=== PATIENT | female | born 1970 | race Caucasian/White ===

== ENCOUNTER 2017-11-16 00:42 | Outpatient (CLI) | payer BC, SELFPAY ==
--- NOTE | 2017-11-16 14:16 | DI.MAMMO_ITS ---
SYMPTOM/DIAGNOSIS: DIAGNOSTIC, RT NIPPLE DISCHARGE, N64.52 MAMMOGRAMS: Mammograms were interpreted according to the usual protocol including computer analysis with CAD system, tomosynthesis and C view imaging. Comparison is made with prior examinations. Breast density, category B. No suspicious masses or microcalcifications are seen. The skin and axilla are unremarkable. There has been no significant change compared to the prior examination. A right breast ultrasound was recommended. The patient was unable to have the ultrasound today and is scheduled to return 11/17/17. IMPRESSION: Category 0, ultrasound pending. The findings were discussed with the patient on the date of the examination. MQSA ASSESSMENT OF FINDINGS: Incomplete: Needs additional imaging evaluation. Category 0. Patient will receive a letter notifying them of these results. BI-RADS category B. There are scattered areas of fibroglandular density. Patient returned on 11/17/17 for right breast ultrasound. FINAL MQSA ASSESSMENT OF FINDINGS: Negative. Category 1. Patient will receive a letter notifying them of these results.
== END 2017-11-16 01:02 ==
PROVIDERS: PCP Family Medicine; Visit Provider Family Medicine
DX: N64.52 Nipple discharge (principal); R92.8 Other abnormal and inconclusive findings on diagnostic imaging of breast
CPT/HCPCS: 77062; 77066; G0279

== ENCOUNTER 2017-11-16 14:23 | Outpatient (CLI) | payer BC, SELFPAY ==
[2017-11-16 16:58] LABS: TSH (W/Ref FT4) 1.34 uIU/mL (0.358-3.74)
[2017-11-16 18:10] LABS: Hemoglobin A1C 6.2 % (4.5-6.2)
== END 2017-11-16 14:43 ==
PROVIDERS: PCP Family Medicine; Visit Provider Family Medicine
DX: E11.65 Type 2 diabetes mellitus with hyperglycemia (principal); N64.52 Nipple discharge
CPT/HCPCS: 36415; 83036; 84443

== ENCOUNTER 2017-11-17 15:02 | Outpatient (CLI) | payer BC, SELFPAY ==
--- NOTE | 2017-11-17 15:23 | DI.US_ITS ---
SYMPTOM/DIAGNOSIS: F/U ABNL MAMMO 11/16 RIGHT BREAST ULTRASOUND: Comparison is made with the mammogram and additional views from 11/16/17. The patient is returning for the right breast ultrasound. The retro areolar region of the right breast was evaluated sonographically. No cystic or solid masses are seen. No ductal dilatation is seen in the retroareolar region. IMPRESSION: Negative mammogram and ultrasound. Yearly mammography is recommended. Category 1 B Negative mammogram and ultrasound should not preclude biopsy of a clinically suspicious mass. The findings were discussed with the patient on the date of the examination.
== END 2017-11-17 15:22 ==
PROVIDERS: PCP Family Medicine; Visit Provider Family Medicine
DX: Z12.31 Encounter for screening mammogram for malignant neoplasm of breast (principal); R92.8 Other abnormal and inconclusive findings on diagnostic imaging of breast; N60.81 Other benign mammary dysplasias of right breast
CPT/HCPCS: 76642

== ENCOUNTER 2018-05-07 02:15 | Outpatient (CLI) | payer BC, SELFPAY ==
[2018-05-07 08:37] LABS: Hemoglobin A1C 6.1 % (4.5-6.2)
== END 2018-05-07 02:35 ==
PROVIDERS: PCP Family Medicine; Visit Provider Family Medicine
DX: E11.9 Type 2 diabetes mellitus without complications (principal)
CPT/HCPCS: 36415; 83036

== ENCOUNTER 2018-06-25 09:45 | Emergency (ER) | payer BC, SELFPAY ==
[2018-06-25 09:49] VITALS: BP 134/84; PULSE 73; RESP 20; TEMP 36.7; O2SAT 100
--- NOTE | 2018-06-25 09:59 | W.ED.GENAD ---
Discharge Plan Disposition Patient Disposition: HOME Condition: Improving Discharge Details Chief Complaint: Cellulitis Clinical Impression: Cellulitis of right elbow Primary Care Provider: Cynthia Prieto ED Provider: Eliot Graves Home Meds and New Rx's Prescriptions: New sulfamethoxazole-trimethoprim [Bactrim DS] 800-160 mg tablet 1 tab PO BID 7 Days Qty: 14 RF: 0 Continued cinnamon bark 500 mg capsule See Patient Comments PO .COMPLEX RF: 0 amitriptyline 25 mg tablet 25 mg PO HS RF: 0 atenolol-chlorthalidone 50-25 mg tablet 1 tab PO DAILY RF: 0 metformin 500 mg tablet 500 mg PO BID RF: 0 metronidazole 0.75 % gel 1 applic TP BID PRNRF: 0 nystatin 100,000 unit/gram powder 1 applic TP BID PRNRF: 0 valacyclovir 500 mg tablet 500 mg PO BID PRNRF: 0 biotin 1 mg capsule 1 mg PO DAILY RF: 0 cyanocobalamin (vitamin B-12) 1,000 mcg capsule 1,000 mcg PO DAILY RF: 0 apple cider vinegar 500 mg tablet PO DAILY RF: 0 lancets 1 EACH misc 1 ea Miscellaneous DAILY Qty: 90 RF: 4 Blood Glucose Test 1 EACH strip 1 ea Miscellaneous DAILY Qty: 90 RF: 4 Discharge Instructions Instructions: Cellulitis (ED) Additional Instructions: May apply gentle compression to area for stability as we discussed. Remove to prevent tourniquet effect. Take antibiotics as prescribed for 1 week. Elevate above level of heart to reduce discomfort. May apply warm, moist heat to area. Return if you have increased swelling or discomfort at the elbow. Continue your regular medications Medical Decision Making 88-year-old female presents with right elbow discomfort and mild swelling. On exam appears to be more consistent with cellulitis rather than olecranon bursitis. She had scratched/excoriated the skin 2 days ago and I feel that she now has a mild skin infection. We will treat with Bactrim. Patient to be given compression. She understands need to return if she has persistence or worsening swelling of the elbow. HPI General Mode of arrival: ambulatory. Date/Time Provider Initiated Documentation: 06/25/18 09:46. Limitations to Documentation: no limitations. Information obtained by: patient. History of Present Illness 48 year old F presents to the emergency department with the chief complaint of Right elbow swelling and discomfort, described as moderate, Quality is described as dull and constant, and is localized to the left and upper extremity. Patient reports no radiation. Patient started experiencing this day(s) and it has been constant. No relieving factors improve symptom(s), No exacerbating factors reported . Patient notes no other symptoms.. Patient did receive the following treatments prior to arrival, none Related Data Home Medications Medication Instructions Recorded Confirmed lancets #90 ea 11/22/13 05/18/18 Blood Glucose Test #90 strip 11/05/16 05/18/18 amitriptyline 25 mg tablet 25 mg PO HS tab 10/30/17 06/25/18 atenolol 50 mg-chlorthalidone 25 1 tab PO DAILY 10/30/17 06/25/18 mg tablet metformin 500 mg tablet 500 mg PO BID 10/30/17 06/25/18 metronidazole 0.75 % topical gel 1 applic TP BID PRN 10/30/17 06/25/18 nystatin 100,000 unit/gram topical 1 applic TP BID PRN 10/30/17 06/25/18 powder valacyclovir 500 mg tablet 500 mg PO BID PRN 10/30/17 06/25/18 cinnamon bark 500 mg capsule See Rx Instructions PO .COMPLEX 11/24/17 06/25/18 cap apple cider vinegar 500 mg tablet mg PO DAILY tab 05/10/18 05/18/18 biotin 1 mg capsule 1 mg PO DAILY 05/10/18 06/25/18 cyanocobalamin (vitamin B-12) 1,000 mcg PO DAILY 05/10/18 06/25/18 1,000 mcg capsule sulfamethoxazole-trimethoprim 1 tab PO BID 7 Days #14 tab 06/25/18 [Bactrim DS] Previous Rx's Medication Instructions Recorded Blood Glucose Test #90 strip 11/05/16 sulfamethoxazole-trimethoprim 1 tab PO BID 7 Days #14 tab 06/25/18 [Bactrim DS] Allergies Allergy/AdvReac Type Severity Reaction Status Date / Time Penicillins Allergy Mild HIVES Unverified 06/25/18 09:51 General Stated Complaint: Cellulitis RUBY: 3 Review of Systems Review of Systems No fever or chills. Area was excoriated 2 days ago. Swelling this morning. 6 systems reviewed and otherwise negative [facility] Medical History Rosacea, acne (Chronic 04/30/15) Primary insomnia (Chronic 11/27/14) Poorly controlled diabetes mellitus (Chronic 08/07/14) Polycystic ovaries (Chronic) Increased body mass index (Chronic) Hyperlipidemia (Chronic 06/29/12) Essential hypertension (Chronic 01/31/13) Annual physical exam (Resolved) Surgical History H/O section (Resolved) section (~08/1998) Family History Mother Diabetes Essential hypertension Depression Heart disease Hyperlipidemia Father Diabetes Personal history of malignant neoplasm Depression Heart disease Grandfather No problems noted. Grandfather Heart disease Grandmother Essential hypertension Personal history of malignant neoplasm Heart disease Hyperlipidemia Stroke Grandmother Personal history of malignant neoplasm FAMILY HISTORY Polycystic kidney disease Social History Smoking/Tobacco Use Status: Former Tobacco Use Alcohol Intake: current Alcohol Intake frequency: holidays/special occasions only Drug use: Never Substance use type: does not use Household members: other Details: 4 current occupation: TEACHER What type of physical activity do you participate in: walking Frequency: 3-4 times per week Do you feel safe at home: Yes Do you feel safe in your relationship?: Yes Exam Narrative Exam Narrative: GEN: awake, alert, oriented 3. Pleasant, well groomed, interactive. HEAD: Normocephalic, atraumatic ENT: Mucous membranes moist, oropharynx unremarkable, External ear exam unremarkable EYES: PERRL, EOMI NECK: Full ROM, no GUMARO, no menigismus CHEST/RESP: Nontender, clear to auscultation bilateral, no wheeze/rhonchi/rales CARDIOVASCULAR: RRR, no murmur, rub chance. EXT: Full ROM, right elbow has a small area of excoriated skin and overlying the bursa there is mild erythema and swelling without discrete fluid pocket. Full range of motion of the elbow. 2+ radial pulse Neuro: Grossly normal neurologic exam, conversant, interactive. Psych: Speech fluent, thoughts congruent, affect normal Course Vital Signs Temperature 36.7 C 06/25/18 09:49 Pulse 73 06/25/18 09:49 Respiratory Rate 20 06/25/18 09:49 Blood Pressure 134/84 06/25/18 09:49 Pulse Oximetry 100 06/25/18 09:49 Temperature 36.7 C 06/25/18 09:49 Temperature Source Temporal Artery Scan 06/25/18 09:49 Pulse 73 06/25/18 09:49 Respiratory Rate 20 06/25/18 09:49 Respiratory Effort Non-Labored 06/25/18 09:49 Blood Pressure 134/84 06/25/18 09:49 Blood Pressure Position Supine 06/25/18 09:49 Pulse Oximetry 100 06/25/18 09:49 Oxygen Delivery Method Room Air 06/25/18 09:49 Oxygen Flow Rate 0 06/25/18 09:49 Pain Level 0 06/25/18 09:49
[2018-06-25 10:35] VITALS: BP 134/84; PULSE 73; RESP 20; TEMP 36.7; O2SAT 100
== END 2018-06-25 10:10 | disposition home or self-care (01) ==
LOC: ER 10:17
PROVIDERS: Emergency Provider Emergency Medicine; PCP Family Medicine
DX: L03.113 Cellulitis of right upper limb (principal); I10 Essential (primary) hypertension; E11.9 Type 2 diabetes mellitus without complications; Z79.84 Long term (current) use of oral hypoglycemic drugs
CPT/HCPCS: 99283

== ENCOUNTER 2018-08-06 02:35 | Outpatient (CLI) | payer BC, SELFPAY | END 2018-08-06 02:55 | PROVIDERS: PCP Family Medicine; Visit Provider Family Medicine | DX: E11.9 Type 2 diabetes mellitus without complications (principal) | CPT/HCPCS: 36415; 83036 ==

== ENCOUNTER 2018-11-22 12:41 | Outpatient (REF) | payer BC, SELFPAY ==
[2018-11-23 15:05] LABS: Chlamydia Result Negative; GC Result Negative; Specimen Description URINE
== END 2018-11-22 13:01 ==
LOC: LBN 12:41
PROVIDERS: PCP Family Medicine; Visit Provider Nurse Practitioner Women's Health
DX: Z11.3 Encounter for screening for infections with a predominantly sexual mode of transmission (principal)
CPT/HCPCS: 87491; 87591

== ENCOUNTER 2019-01-28 07:01 | Outpatient (CLI) | payer BC, SELFPAY ==
[2019-01-28 07:49] LABS: Hemoglobin A1C 5.8 % (4.5-6.2)
== END 2019-01-28 07:21 ==
PROVIDERS: PCP Family Medicine; Visit Provider Family Medicine
DX: E11.65 Type 2 diabetes mellitus with hyperglycemia (principal)
CPT/HCPCS: 36415; 83036

== ENCOUNTER 2019-09-23 16:15 | Outpatient (CLI) | payer BC, SELFPAY ==
--- NOTE | 2019-09-23 16:15 | RT.EKG_ITS ---
APPROVED REPORT Exam: Resting ECG Patient Location: O HR:53 bpm ECG Measurements Heart Rate 53 AXIS LA 205 P 28 QRSd 90 QRS 62 QT 390 T 36 QTc 367 <Conclusion> Sinus bradycardia...rate< 60 Borderline prolonged LA interval...LA >202, V-rate 50- 90
[2019-09-23 21:41] LABS: HCT 41.8 % (36.0-46.0); HGB 12.9 g/dL (11.2-15.7); MCH 24.3 pg (27.0-33.0); MCHC 30.9 % (32.0-36.0); MCV 78.7 fL (80-95); MPV 11.6 fL (8.0-11.0); Platelet Count 321 10^3/uL (130-400); RBC 5.31 10^6/uL (3.93-5.22); RDW 16.5 % (11.7-14.6); RDW-SD 46.9 fL; WBC 9.17 10^3/uL (4.4-10.8)
== END 2019-09-23 16:35 ==
PROVIDERS: PCP Family Medicine; Visit Provider Nurse Practitioner Family
DX: R55 Syncope and collapse (principal); E11.65 Type 2 diabetes mellitus with hyperglycemia; E78.2 Mixed hyperlipidemia; I10 Essential (primary) hypertension
CPT/HCPCS: 85027; 83036

== ENCOUNTER 2019-09-28 03:55 | Outpatient (CLI) | payer BC, SELFPAY ==
[2019-09-28 16:10] LABS: Total Iron Binding Capacity 454 ug/dL (250-450)
[2019-09-28 16:48] LABS: ALT 31 U/L (14-59); AST 17 U/L (15-37); Albumin 3.9 g/dL (3.4-5.0); Alkaline Phosphatase 63 U/L (46-116); Anion Gap 8.4 mmol/L (3-11); BUN 19 mg/dL (7-18); Bilirubin, Total 0.8 mg/dL (0.2-1.0); CO2 27.6 mmol/L (21.0-32.0); Calcium 10.2 mg/dL (8.5-10.1); Chloride 103 mmol/L (98-107); Ferritin 15 ng/mL (8-252); Glucose 98 mg/dL (74-106); Magnesium 2.1 mg/dL (1.8-2.4); Potassium 3.6 mmol/L (3.5-5.1); Sodium 139 mmol/L (136-145); TSH 1.14 uIU/mL (0.36-3.74)
[2019-09-28 17:23] LABS: FREE T4 1.11 ng/dL (0.76-1.46)
[2019-09-29 13:46] LABS: Calculated LDL 144 mg/dL (<100); Cholesterol 259 mg/dL (<200); HDL Cholesterol 49 mg/dL (40-60); Triglyceride 333 mg/dL (<150)
== END 2019-09-28 04:15 ==
PROVIDERS: PCP Family Medicine; Visit Provider Nurse Practitioner Family
DX: E11.65 Type 2 diabetes mellitus with hyperglycemia (principal); E78.2 Mixed hyperlipidemia; I10 Essential (primary) hypertension
CPT/HCPCS: 36415; 80053; 80061; 82728; 83550; 83735; 84439; 84443

== ENCOUNTER 2019-09-28 14:07 | Outpatient (CLI) | payer BC, SELFPAY ==
--- NOTE | 2019-10-17 15:27 | ZIOP_ITS ---
Date of service: 10/17/19 Time of Service: 15:27 ZIO Patch Parking Meter Servicer Referring Provider:: Arya Indications:: Syncope Note: This is a 2-week ZIO patch ordered for indication of syncope. ?The patient was in normal sinus rhythm for the majority of the recording with an average heart rate of 64 bpm (36 bpm - 142 bpm) ?There were no episodes of ventricular tachycardia, no pauses in 3 seconds and no evidence of high degree heart block. ?There are no episodes of atrial fibrillation. ?There were rare isolated supraventricular ectopic beats and rare isolated ventricular ectopic beats. ?1 patient triggered event which is associated with sinus rhythm at a rate of 81 bpm.
== END 2019-09-28 14:27 ==
PROVIDERS: PCP Family Medicine; Visit Provider Nurse Practitioner Family
DX: R55 Syncope and collapse (principal); I49.3 Ventricular premature depolarization
CPT/HCPCS: 0296T

== ENCOUNTER 2019-11-15 01:19 | Outpatient (CLI) | payer BC, SELFPAY ==
--- NOTE | 2019-11-15 16:15 | NS.NUTBLAN_ITS ---
ASSESSMENT: Josefina is a 49 y/o female with referral form [facility] for nutritional counseling r/t DM, Pre-DM, Meal planning. She is currently 179lb w/ recent gradual and desirable weight loss resulting from good supervised exercise program with a safety trainer and concentrating on a diet of fresh, whole, home-cooked foods. She stated that she eats salads if she goes to restaurants. Noted: pannus revision also contributed to weight loss. She reports that her supports her efforts in weight loss and exercise. Her main concern today was meal planning and establishing an appropriate goal weight. Currently she is 81.3 kg with BMI 31.5. Her A1c was 6.0% and BG 98 mg/dl on 09/22(WNL). She was on metformin 500mg BID which has been DC'd r/t recent desirable BG ranges.On B-12, Vit C and cinnamon bark to help w/ micro-nutrient needs and glucose control. She reports her safety trainer recommended 1500 k/dustin /day diet and she provided some sample menus he designed for her. Her PO intake she described for today was insufficient to provide enough calories and nutrients to support her active lifestyle and for her to continue to lose weight at a safe rate. She is hydrating very well and had water with her at this appointment. She is to be commended for her dedication to her healthy lifestyle and utilizing the proper resources ( IDT) to achieve her weigh loss and fitness goals. INTERVENTION: Educated Josefina on basic nutrient timing for peak performance to supplement her training regimen. Explained the concept of 15g/CHO 30 minutes before training and the importance of replenishing NaCl and fluids on training days. Recommended carbs and cals phone marleny to help with mindfulness of appropriate daily caloric intake. Recommended whey pro supplement w/ 8 oz chocolate milk after training to help with building lean muscle mass. Recommended: Goal weight of 68.1 kg with 2152-2688 k/cals /day based on 25-30 k/dustin/kg. Recommended: Pro intake 97.5-100g/day based on current weight of 81.3kg and activity factor 1.2 if she continues her intense training schedule. Recommended a rest day to avoid over training.Provided resources for meal silver service waiter at breakfast with nutritional breakdown. Provided her with a CHO/Pro pairing guide and healthy meal planning guide. Explained that BMI and IBW are not always specific to frame size. Her IBW is 52.2. We agreed this weight would not be appropriate for her at this time. Plan: Josefina will re-schedule for a follow up appointment with this RD in one month to review her progress toward her weight loss goals and LBM gain. She feels she can research her own recipes and understands the principles of caloric intake to avoid starvation syndrome.
== END 2019-11-15 01:39 ==
PROVIDERS: PCP Family Medicine; Visit Provider Dietitian, Registered
DX: E11.9 Type 2 diabetes mellitus without complications (principal); Z71.3 Dietary counseling and surveillance
CPT/HCPCS: 97802

== ENCOUNTER 2020-05-01 03:22 | Outpatient (CLI) | payer BC, SELFPAY ==
[2020-05-01 14:05] LABS: ALT 22 U/L (14-59); AST 15 U/L (15-37); Albumin 3.9 g/dL (3.4-5.0); Alkaline Phosphatase 61 U/L (46-116); Anion Gap 10.4 mmol/L (3-11); BUN 15 mg/dL (7-18); Bilirubin, Total 0.7 mg/dL (0.2-1.0); CO2 27.6 mmol/L (21.0-32.0); CREATININE 0.7 mg/dL (0.55-1.02); Calcium 10.3 mg/dL (8.5-10.1); Chloride 102 mmol/L (98-107); Glucose 99 mg/dL (74-106); Potassium 3.5 mmol/L (3.5-5.1); Sodium 140 mmol/L (136-145); Total Protein 6.7 g/dL (6.4-8.2)
[2020-05-01 14:05] LABS: Hemoglobin A1C 5.7 % (<5.7)
== END 2020-05-01 03:23 | disposition home or self-care (01) ==
LOC: LOS 03:22
PROVIDERS: PCP Family Medicine; Visit Provider Family Medicine
DX: Z00.00 Encounter for general adult medical examination without abnormal findings (principal); E11.65 Type 2 diabetes mellitus with hyperglycemia; I10 Essential (primary) hypertension; E78.2 Mixed hyperlipidemia
CPT/HCPCS: 36415; 80053; 83036

== ENCOUNTER 2020-07-17 17:02 | Outpatient (REF) | payer BC, SELFPAY ==
[2020-07-17 18:56] LABS: COMMENT (LAB VIEW ONLY) 161.67 mg/dL; Microalb ug/mg Crea 7.9 ug/mg Cr
== END 2020-07-17 17:03 | disposition home or self-care (01) ==
LOC: LBN 17:02
PROVIDERS: PCP Family Medicine; Visit Provider Family Medicine
DX: Z00.00 Encounter for general adult medical examination without abnormal findings (principal); E11.8 Type 2 diabetes mellitus with unspecified complications; E78.5 Hyperlipidemia, unspecified; I10 Essential (primary) hypertension
CPT/HCPCS: 82043; 82570

== ENCOUNTER 2020-11-16 02:52 | Outpatient (CLI) | payer BC, SELFPAY ==
[2020-11-16 09:13] LABS: Hemoglobin A1C 5.8 % (<5.7)
[2020-11-16 10:12] LABS: ALT 22 U/L (14-59); AST 13 U/L (15-37); Albumin 3.8 g/dL (3.4-5.0); Alkaline Phosphatase 68 U/L (46-116); Anion Gap 9.7 mmol/L (3-11); BUN 11 mg/dL (7-18); Bilirubin, Total 0.9 mg/dL (0.2-1.0); CO2 27.3 mmol/L (21.0-32.0); CREATININE 0.7 mg/dL (0.55-1.02); Calcium 9.6 mg/dL (8.5-10.1); Calculated LDL 129 mg/dL (<100); Chloride 104 mmol/L (98-107); Cholesterol 211 mg/dL (<200); Glucose 95 mg/dL (74-106); HDL Cholesterol 45 mg/dL (40-60); Potassium 3.7 mmol/L (3.5-5.1); Sodium 141 mmol/L (136-145); Total Protein 6.8 g/dL (6.4-8.2); Triglyceride 189 mg/dL (<150)
== END 2020-11-16 02:53 | disposition home or self-care (01) ==
LOC: LBO 02:52
PROVIDERS: PCP Family Medicine; Visit Provider Family Medicine
DX: Z00.00 Encounter for general adult medical examination without abnormal findings (principal); I10 Essential (primary) hypertension; E11.9 Type 2 diabetes mellitus without complications
CPT/HCPCS: 36415; 80053; 80061; 83036

== ENCOUNTER 2020-11-19 16:19 | Outpatient (REF) | payer BC, SELFPAY ==
--- NOTE | 2020-11-19 15:30 | PAPFT_PTH ---
PATIENT: Josefina Waite LOC: [facility] U#:[id number] AGE/SX: 50/F ROOM: RE11/19/[address]: Cynthia Prieto MD, DC : 1970 BED: DIS: 11/19/2020 SPEC #: [id number] RECD: 11/19/20 18:37 STATUS: ALEX REQ #: [id number] JCARLOS: 11/19/20 15:[address]: Cynthia Prieto DEPT: [facility] Cytology RECD BY: Tiffanie Robles Tissues: 1 - CX/ENDOCX FOR PAP SMEARS Procedures: PAP THIN PREP/UVM Screening HPV DNA PROBE Comments: [id number]
== END 2020-11-19 16:20 | disposition home or self-care (01) ==
LOC: LBN 16:19
PROVIDERS: PCP Family Medicine; Visit Provider Family Medicine
DX: Z12.4 Encounter for screening for malignant neoplasm of cervix (principal); Z11.51 Encounter for screening for human papillomavirus (HPV)
CPT/HCPCS: 88142; 87624

== ENCOUNTER 2020-12-19 02:25 | Outpatient (CLI) | payer BC, SELFPAY ==
--- NOTE | 2020-12-19 09:30 | DI.MAMMO_ITS ---
Exam(s) MAMMO SCREENING EXAM: MAMMO SCREENING CLINICAL HISTORY: screening,Z12.39. TECHNIQUE: Bilateral full field digital CC and MLO mammographic images were obtained with 3D tomosyn thesis and utilizing computer aided detection (CAD). COMPARISON: Prior mammograms dating back to 2015, the most recent being October 2017. Ultrasound 1002 was reviewed FINDINGS: There are no new spiculated masses nor malignant appearing microcalcification groups. There is no significant architectural distortion nor skin thickening-retraction. IMPRESSION: No radiographic evidence of malignancy. BI-RADS Category 1 - Negative Breast Density - Category B - Scattered areas of fibroglandular density Breast density Category C or D implies that the patient has dense breast tissue. Dense breast tissue can make it harder to find cancer on a mammogram. Dense breast tissue is also associated with an incr eased risk of breast cancer. This information about the result of the mammogram report was provided to the patient to raise their awareness. Use this report when you speak with the patient about their risks for breast cancer, which includes their family history. At that time, you may recommend additional screening tests (Ultrasoun d or MRI) as these tests may add significant information. A negative radiographic report should not delay biopsy if a dominant or clinically suspicious mass is present. Up to ten percent of cancers are not identified on mammography. A negative report may reinforce clinical impression. Adenosis and dense breasts may obscure an underlying neoplasm. False positive reports average 6 to 10%. Patient will receive a letter notifying them of these results.
== END 2020-12-19 02:45 ==
PROVIDERS: PCP Family Medicine; Visit Provider Family Medicine
DX: Z12.31 Encounter for screening mammogram for malignant neoplasm of breast (principal)
CPT/HCPCS: 77063; 77067

== ENCOUNTER 2021-02-13 10:10 | Outpatient (CLI) | payer BC, SELFPAY ==
--- NOTE | 2021-02-13 09:45 | DI.RAD_ITS ---
Exam(s) XR KNEE RT 3V AP,LAT,KELLY EXAM: XR KNEE RT 3V AP,LAT,KELLY CLINICAL HISTORY: anterior right knee pain-just below joint line, M25.561. TECHNIQUE: 2D digital imaging was performed of the right knee. Three views obtained. AP, lateral, M erchant and PA tunnel views were obtained. COMPARISON: No exams were available for comparison FINDINGS: BONES: No acute fracture is present. No bony destructive lesion is seen. There are enthesophytes at t he superior and inferior patella. JOINTS: The knee is normally aligned. No joint effusion is seen. Mild spurring is seen at the posteri or patella. SOFT TISSUE: Normal. IMPRESSION: Mild degenerative changes of the right knee. DATA REPOSITORY: RADIATION DOSE DELIVERED:
== END 2021-02-13 10:30 ==
PROVIDERS: PCP Family Medicine; Visit Provider Family Medicine
DX: M25.561 Pain in right knee (principal); M17.11 Unilateral primary osteoarthritis, right knee
CPT/HCPCS: 73562

== ENCOUNTER 2021-11-04 03:40 | Outpatient (CLI) | payer BC, SELFPAY ==
[2021-11-04 08:09] LABS: ALT 26 U/L (14-59); AST 13 U/L (15-37); Albumin 3.7 g/dL (3.4-5.0); Alkaline Phosphatase 59 U/L (46-116); Anion Gap 8.6 mmol/L (3-11); BUN 12 mg/dL (7-18); Bilirubin, Total 0.6 mg/dL (0.2-1.0); CO2 28.4 mmol/L (21.0-32.0); CREATININE 0.7 mg/dL (0.55-1.02); Calcium 9.9 mg/dL (8.5-10.1); Calculated LDL 178 mg/dL (<100); Chloride 104 mmol/L (98-107); Cholesterol 252 mg/dL (<200); Estimated GFR 104.65 (mL/min/1.73m2); Glucose 109 mg/dL (74-106); HDL Cholesterol 52 mg/dL (40-60); Potassium 3.4 mmol/L (3.5-5.1); Sodium 141 mmol/L (136-145); Total Protein 7.1 g/dL (6.4-8.2); Triglyceride 111 mg/dL (<150)
== END 2021-11-04 03:41 | disposition home or self-care (01) ==
PROVIDERS: PCP Family Medicine; Visit Provider Family Medicine
DX: Z00.00 Encounter for general adult medical examination without abnormal findings (principal)
CPT/HCPCS: 36415; 80053; 80061

== ENCOUNTER 2021-12-23 11:16 | Outpatient (CLI) | payer BC, SELFPAY ==
--- NOTE | 2021-12-23 11:15 | RT.EKG_ITS ---
APPROVED REPORT Exam: Resting ECG Reason for Exam: Patient Location: O HR:60 bpm ECG Measurements Heart Rate 60 AXIS NV 201 P 37 QRSd 92 QRS 56 QT 381 T 38 QTc 381 Conclusion Sinus rhythm...normal P axis, V-rate 50- 99 Normal Electrocardiogram
== END 2021-12-23 11:17 | disposition home or self-care (01) ==
LOC: DI.CM 11:16
PROVIDERS: PCP Family Medicine; Visit Provider Family Medicine
DX: R07.9 Chest pain, unspecified (principal)
CPT/HCPCS: 93010

== ENCOUNTER → 2022-01-02 01:51 | Outpatient (CLI) | payer BC, SELFPAY ==
--- NOTE | 2022-01-02 08:00 | ETT_ITS ---
APPROVED REPORT Exam: Exercise Treadmill Patient Location: Out-Patient Room/Bed: Stress Nurse: Nelda Ochoa RN Ordering Provider:CRESCENCIO LOPEZ, Contact Number: [phone] BMI: 31.70 Baseline Rhythm: Sinus Rhythm Indications: Chest Pain Medical History Medical History: HTN, HLD, Tobacco use Cardiac Medications: Potassium chloride, atenolol, chlorthalidone, amolodipine Allergies: Penicillins Cardiac Risk Factors: +family history, HTN, HLD, current cigarette smoker Previous Cardiac Procedures: None Pretest Chest Pain Characteristics: None Exercise History: Physically active Physical Disabilities: None Lung Sounds: Clear Heart Sounds: Regular Stress Test Details Test: Exercise stress testing was performed using a Teddy protocol. Rest Stress HR Resting HR Supine: 68 bpm Max Heart Rate (APMHR): 169 bpm Resting HR Standin bpm Target HR (85% APMHR): 143 bpm Max HR Achieved: 148 bpm % of APMHR: 87 Recovery HR: 82 bpm HR response to stress: Normal HR response to stress BP Resting BP Supine: 160/96 mmHg Resting BP Standin/96 mmHg Max BP: 218/80 mmHg Recovery BP: 152/100 mmHg BP response to stress: Normal blood pressure response to stress. Comment: Pt states she didnt take any of her BP medications since Thursday ECG Resting ECG: Sinus Rhythm Ectopy: None Stress ECG: Sinus Tachycardia ST Change: No significant ST segment changes noted Arrhythmia: None Recovery ECG: Sinus Rhythm Recovery ST Change: No significant ST segment changes noted Recovery Arrhythmia: None Clinical Reason for Termination: Target HR Achieved, Fatigue Stress Symptoms: General Fatigue Exercise duration: 9 min56 sec Highest Stage Reached: Stage 4: 4.2 mph at 16% grade. Exercise capacity: 11.70 METs Angina Score: None Rate Pressure Product: [id number] Stress ECG Conclusion 1. Resting electrocardiogram showed voltage for left ventricular hypertrophy 2. Patient exercised on the Teddy protocol and completed a workload of 11.7 METS stopping due to fati leo 3. Normal heart rate and blood pressure response to exercise. Patient achieved 87% of maximal predic margret heart rate for age 4. There was no electrocardiographic evidence of myocardial ischemia 5. There were no significant dysrhythmias Stress Test Summary STAGE Time (mins) Speed (mph) Grade (%) HR BP SpO2 SYMPTOMS METS Supine 68 160/96 Standing 84 140/96 1 3 1.7 10 105 188/90 4.5 2 6 2.5 12 119 200/98 7 3 9 3.4 14 138 210/100 10 4 12 4.2 16 145 13 1 min recovery 129 218/80 3 min recovery 102 170/98 6 min recovery 90 152/100 9 min recovery 82 Patient tolerated test well. Stated she had not only held her Atenolol but all her blood pressure med ications since Thursday. Patient was asymptomatic throughout entire test.
--- NOTE | 2022-01-02 08:54 | DI.RAD_ITS ---
Exam(s) XR CHEST 2V PA LATERAL EXAM: XR CHEST 2V PA LATERAL CLINICAL HISTORY: chest pain,R07.9 TECHNIQUE: 2D digital imaging was performed of the chest. Two images were obtained. PA and lateral views were obtained. COMPARISON: No exams were available for comparison FINDINGS: MEDIASTINUM: Normal. HEART: Normal. PULMONARY VASCULATURE: Normal. LUNGS: Clear. PLEURAL SPACE: No pleural effusion or pneumothorax. BONE:Within normal limits for the patient's age. OTHER FINDINGS:Normal. IMPRESSION: No acute pulmonary findings. DATA REPOSITORY: RADIATION DOSE DELIVERED:
== END ==
PROVIDERS: PCP Family Medicine; Visit Provider Family Medicine
DX: R07.9 Chest pain, unspecified (principal)
CPT/HCPCS: 71046; 93017

== ENCOUNTER 2022-01-25 11:11 | Emergency (ER) | payer BC, SELFPAY ==
[2022-01-25 11:20] VITALS: BP 153/95; PULSE 88; RESP 18; TEMP 37.8; O2SAT 99
--- NOTE | 2022-01-25 12:15 | DI.RAD_ITS ---
Exam(s) XR CHEST 2V PA LATERAL EXAM: XR CHEST 2V PA LATERAL CLINICAL HISTORY: cough, fever TECHNIQUE: 2D digital imaging was performed. COMPARISON: CR XR CHEST 2V PA LATERAL from 01/02/2022 FINDINGS: The heart is not enlarged. The lungs are clear and well expanded. No pleural effusion seen. Mediastin al contours appear intact. IMPRESSION: Normal chest. RADIATION DOSE DELIVERED: Total DLP
[2022-01-25] MEDS: predniSONE 20 MG TAB 40 MG PO (12:45)
[2022-01-25] MEDS: Ibuprofen 400 MG TAB 600 MG PO (12:45)
[2022-01-25] MEDS: Albuterol HFA 8 GM 60 PUFF INH IH (12:45)
--- NOTE | 2022-01-25 13:10 | W.ED.GENAD ---
Discharge Plan Disposition Patient Disposition: Home Condition: Stable Discharge Details Clinical Impression: Influenza A Primary Care Provider: Cynthia Prieto ED Provider: Tiffanie Holguin Home Meds and New Rx's Prescriptions: New oseltamivir [Tamiflu] 75 mg capsule 75 mg PO BID 5 Days Qty: 10 0RF Continued cinnamon bark 500 mg capsule See Rx Instructions PO .COMPLEX Label Comments: 2 tab PO Daily; Rx Instructions: 2 tab PO Daily; melatonin 10 mg tablet 10 mg PO HS PRN ascorbic acid (vitamin C) 1,000 mg tablet 1 g PO DAILY diphenhydramine HCl [Unisom SleepGels] 50 mg capsule 50 mg PO QHS cholecalciferol (vitamin D3) 25 mcg (1,000 unit) capsule 25 mcg PO DAILY Digestive Advantage Probio-Pre 800 million cell tablet See Rx Instructions PO DAILY Rx Instructions: 1 TAB PO daily; naproxen [Naprosyn] 500 mg tablet 500 mg PO BID PRN (Reason: pain) Qty: 30 1RF biotin 1 mg capsule 1 mg PO DAILY cyanocobalamin (vitamin B-12) 1,000 mcg capsule 1,000 mcg PO DAILY apple cider vinegar 500 mg tablet PO DAILY Mirena 20 mcg/24 hours (5 yrs) 52 mg intrauterine device 1 device IY ONCE Rx Instructions: placed 11/25/2018 escitalopram oxalate 10 mg tablet 10 mg PO DAILY Qty: 90 4RF valacyclovir 500 mg tablet 500 mg PO BID PRN (Reason: herpes) Qty: 14 3RF amlodipine 5 mg tablet 5 mg PO DAILY Qty: 90 6RF potassium chloride 20 mEq tablet extended release 20 meq PO DAILY Qty: 90 5RF atenolol-chlorthalidone 50-25 mg tablet 1 tab PO DAILY Qty: 90 4RF zolpidem 10 mg tablet 10 mg PO QHS PRN (Reason: sleep) Qty: 30 0RF Rx Instructions: use sparingly Discharge Instructions Instructions: H1N1 Influenza (ED) Additional Instructions: Take ibuprofen 600 mg every 8 hours as needed for fever control Take Tylenol 650 mg every 4-6 hours Do not exceed 1 g of Tylenol every 6 hours I have given your prescription for Tamiflu at your request, this may cause some stomach upset, if you are having symptoms associated with this medication you may discontinue at any point Referrals: Cynthia Prieto MD, [place] [Primary Care Provider] - Discharge Data Discharge Date/Time-TO BE ENTERED AT DEPARTURE: 01/25/22 13:29 Medical Decision Making This otherwise healthy 51-year-old female presents with upper respiratory symptoms and fever, presents for assessment secondary to symptoms persistent for 48 hours Influenza A positive, given Tamiflu secondary to diabetes history No respiratory distress Chest x-ray without acute abnormality per radiology interpretation my review Given an inhaler Return precautions discussed patient expressed understanding Reassessment 24 to 48 hours with persistence of symptoms recommended Medical Records Medical records reviewed: Yes I reviewed the patient's medical records. Lab Data Lab results reviewed: Yes I reviewed the patient's lab results. Sign Out No HPI General Date/Time Provider Initiated Documentation: 01/25/22 11:52. HPI Narrative: This 51-year-old female presents with chills, fever, cough, and intermittent shortness of breath with myalgias. Symptoms started on . Smokes tobacco. Denies known history of COPD or asthma. Has been taking DayQuil and NyQuil with minimal relief in symptoms. Presents today secondary to persistence of symptoms. Related Data Home Medications Medication Instructions Recorded Confirmed cinnamon bark 500 mg capsule See Rx Instructions PO .COMPLEX 11/24/17 01/25/22 apple cider vinegar 500 mg tablet mg PO DAILY 05/10/18 12/23/21 biotin 1 mg capsule 1 mg PO DAILY 05/10/18 01/25/22 cyanocobalamin (vitamin B-12) 1,000 mcg PO DAILY 05/10/18 01/25/22 1,000 mcg capsule levonorgestrel 20 mcg/24 hours (8 1 device intrauterine ONCE 11/25/18 01/25/22 yrs) 52 mg intrauterine device (Mirena) ascorbic acid (vitamin C) 1,000 mg 1 g PO DAILY 11/03/19 01/25/22 tablet melatonin 10 mg tablet 10 mg PO HS PRN 11/03/19 01/25/22 Bacillus coagulans 800 million See Rx Instructions PO DAILY 05/01/20 01/25/22 cell tablet (Digestive Advantage Probiotics-Prebiotic) cholecalciferol (vitamin D3) 25 25 mcg PO DAILY 05/01/20 01/25/22 mcg (1,000 unit) capsule diphenhydramine HCl 50 mg capsule 50 mg PO QHS 05/01/20 01/25/22 (Unisom SleepGels) naproxen 500 mg tablet (Naprosyn) 500 mg PO BID PRN pain #30 tabs 02/13/21 01/25/22 valacyclovir 500 mg tablet 500 mg PO BID PRN herpes #14 tabs 04/01/21 01/25/22 amlodipine 5 mg tablet 5 mg PO DAILY #90 tabs 05/20/21 01/25/22 escitalopram oxalate 10 mg tablet 10 mg PO DAILY #90 tabs 05/20/21 01/25/22 potassium chloride 20 mEq 20 meq PO DAILY #90 tabs 11/04/21 01/25/22 tablet,extended release atenolol 50 mg-chlorthalidone 25 1 tab PO DAILY #90 tabs 12/18/21 01/25/22 mg tablet zolpidem 10 mg tablet 10 mg PO QHS PRN sleep #30 tabs 12/18/21 01/25/22 oseltamivir 75 mg capsule (Tamiflu) 75 mg PO BID 5 days #10 caps 01/25/22 Previous Rx's Medication Instructions Recorded naproxen 500 mg tablet (Naprosyn) 500 mg PO BID PRN pain #30 tabs 02/13/21 valacyclovir 500 mg tablet 500 mg PO BID PRN herpes #14 tabs 04/01/21 amlodipine 5 mg tablet 5 mg PO DAILY #90 tabs 05/20/21 escitalopram oxalate 10 mg tablet 10 mg PO DAILY #90 tabs 05/20/21 potassium chloride 20 mEq 20 meq PO DAILY #90 tabs 11/04/21 tablet,extended release atenolol 50 mg-chlorthalidone 25 1 tab PO DAILY #90 tabs 12/18/21 mg tablet zolpidem 10 mg tablet 10 mg PO QHS PRN sleep #30 tabs 12/18/21 oseltamivir 75 mg capsule (Tamiflu) 75 mg PO BID 5 days #10 caps 01/25/22 Allergies Allergy/AdvReac Type Severity Reaction Status Date / Time Penicillins Allergy Mild HIVES Verified 01/25/22 11:26 General Stated Complaint: RespSymp RUBY: 3 Review of Systems All systems reviewed & are unremarkable except as noted in HPI and below PFSH All Active Problems (Updated 01/25/22 @ 13:19 by SUSI Boyd) Influenza A (Acute) Chest pain (Acute) Actinic keratosis (Acute) Obesity (Chronic) Annual physical exam (Acute) 09/04/15 Encounter for insertion of mirena IUD (Acute) Encounter for annual physical exam (Acute 09/04/15) Low back pain (Acute) Rosacea, acne (Chronic 04/30/15) Primary insomnia (Chronic 11/27/14) Polycystic ovaries (Chronic) Increased body mass index (Chronic) Hyperlipidemia (Chronic 06/29/12) ELEVATED TRIGLYCERIDES Essential hypertension (Chronic 01/31/13) Medical History (Updated 01/25/22 @ 13:19 by SUSI Boyd) Elevated blood sugar Menorrhagia Pannus, abdominal Poorly controlled diabetes mellitus (08/07/14) Shingles Syncopal episodes Surgical History H/O section 09/09/98 History of section Family History Mother , 76 Diabetes Essential hypertension Depression Heart disease Hyperlipidemia Father Diabetes Depression Heart disease triple bypass Skin cancer Maternal Grandfather No problems noted. Paternal Grandfather Heart disease Maternal Grandmother Essential hypertension Heart disease Hyperlipidemia Stroke Cancer Paternal Grandmother Colon cancer FAMILY HISTORY Polycystic kidney disease Social History Smoking/Tobacco Use Status: Current-Occasional Tobacco: How many years used: 23 Quit status: has quit before Smoking risk assessment performed?: Yes Alcohol Intake: current Alcohol Intake frequency: holidays/special occasions only Alcohol type: beer and hard liquor Drug use: Never Substance use type: does not use, former substance user and marijuana Caregiver/Support person: No Household members: spouse, children and friend(s) Housing: house Communication Needs: None Do you need help understanding health information?: Never current occupation: TEACHER Pets and animals: Yes Pets and animals: cat(s), dog(s) and fish Sexually active: Yes Do you think of yourself as: straight/heterosexual Current gender identity: female What is your relationship status?: How often do you talk on the phone with friends or family?: three or more times per week How often do you get together with friends or relatives?: three or more times per week How often do you attend lutheran or cheondoism services?: 4 or more times per year Do you belong to any clubs or organized social groups?: yes Panel score (0-1 are the most socially isolated patients): 4 What type of physical activity do you participate in: walking, weight lifting and other Details: Cardio, HIIT Fit Duration: 60-90 minutes/day Frequency: 5-6 times per week Bonnie/Jehovah'S Witness: Catholic Special bonnie needs: No Seatbelt use: always Helmet use: No Drive intox or ride w/intox heavy truck driver: No Do you feel safe at home: Yes Do you feel safe in your relationship?: Yes Female Reproductive History Menstrual control method: none and other ( vasectomy) History History 1 Para 1 Hx # Term Pregnancies Multiple births Hx # Pregnancies Ectopic pregnancies AB induced Hx Number of Living Children AB spontaneous Exam Const General: cooperative and comfortable Orientation: alert and oriented x3 Eyes Sclera: sclerae normal Chest Chest: normal inspection of the chest Resp Effort & Inspection: normal respiratory effort Auscultation: clear to auscultation bilaterally Cardio Rate: regular rate GI Inspection: normal to inspection Other: nnon-tender abdominal exam Skin General skin exam: no rashes or lesions noted Neuro General: patient alert and patient oriented x3 Extrem General: normal to inspection Course Vital Signs Vital signs: Vital Signs Temperature 37.8 C H 01/25/22 11:20 Pulse 88 01/25/22 11:20 Respiratory Rate 18 01/25/22 11:20 Blood Pressure 153/95 H 01/25/22 11:20 Pulse Oximetry 99 01/25/22 11:20 Temperature 37.8 C H 01/25/22 11:20 Temperature Source Tympanic 01/25/22 11:20 Pulse 88 01/25/22 11:20 Respiratory Rate 18 01/25/22 11:20 Respiratory Effort 01/25/22 11:23 Blood Pressure 153/95 H 01/25/22 11:20 Blood Pressure Position Supine 01/25/22 11:20 Pulse Oximetry 99 01/25/22 11:20 Oxygen Delivery Method Room Air 01/25/22 11:20 Oxygen Flow Rate 0 01/25/22 11:20 Pain Level 4 01/25/22 11:20 PAWSS Have you Been Recently Intoxicated or Drunk Within the Last 30 days?: No Have you Ever Experienced Previous Episodes of Alcohol Withdrawal?: No Have you ever Experienced Withdrawal Seizures?: No Have you ever Experienced Delirium Tremens(DT)s?: No Have you ever undergone Alcohol Rehabilitation Treatment (i.e, inpt ot outpatient treatment programs)?: No Have you ever Experienced Blackouts?: No Have you ever Combined Alcohol with other Downers within the last 90 days?: No Have you ever Combined Alcohol with any other Substance of Abuse during the last 90 days?: No Positive Blood Alcohol level on Presentation? [PCS.BAL]: No Evidence of Increased Autonomic Activity (i.e. HR>120, tremor, sweating, agitation, nausea)?: No Result: 0
--- NOTE | 2022-01-25 13:11 | DI.VRAD_ITS ---
PROCEDURE INFORMATION: Exam: XR Chest Exam date and time: 01/25/2022 12:56 PM Age: 51 years old Clinical indication: Other: Cough, fever TECHNIQUE: Imaging protocol: Radiologic exam of the chest. Views: 2 views. COMPARISON: CR XR CHEST 2V PA LATERAL 01/02/2022 8:52 AM FINDINGS: Lungs: Unremarkable. No consolidation. Pleural spaces: Unremarkable. No pleural effusion. No pneumothorax. Heart/Mediastinum: Unremarkable. No cardiomegaly. Bones/joints: Unremarkable. IMPRESSION: No acute findings. Dictated and Authenticated by: Joselito Lanza MD. Ordering:MANUELITO Moreno MD
--- NOTE | 2022-01-25 15:24 | NUR.NOTE ---
Nursing Note: Accessed pt chart to see if pt had a chest CT done for ticket to ride.
== END 2022-01-25 13:29 | disposition home or self-care (01) ==
PROVIDERS: Emergency Provider Physician Assistant; PCP Family Medicine
DX: J10.1 Influenza due to other identified influenza virus with other respiratory manifestations (principal); E11.9 Type 2 diabetes mellitus without complications; F17.200 Nicotine dependence, unspecified, uncomplicated
CPT/HCPCS: 94640; 99283; 71046; 99284; J7512

== ENCOUNTER 2022-02-04 02:38 | Outpatient (CLI) | payer BC, SELFPAY ==
[2022-02-04 13:25] LABS: HCT 48.3 % (36.0-46.0); HGB 16.1 g/dL (11.2-15.7); MCH 28.2 pg (27.0-33.0); MCHC 33.3 % (32.0-36.0); MCV 85 fL (80-95); MPV 10.6 fL (8.0-11.0); Platelet Count 347 10^3/uL (130-400); RDW 12.4 % (11.7-14.6); RDW-SD 38.4 fL; WBC 14.44 10^3/uL (4.4-10.8)
[2022-02-04 14:48] LABS: Hemoglobin A1C 5.7 % (<5.7)
[2022-02-04 15:25] LABS: ALT 27 U/L (14-59); AST 18 U/L (15-37); Albumin 4.1 g/dL (3.4-5.0); Alkaline Phosphatase 79 U/L (46-116); Anion Gap 8.9 mmol/L (3-11); BUN 18 mg/dL (7-18); Bilirubin, Total 0.5 mg/dL (0.2-1.0); CO2 29.1 mmol/L (21.0-32.0); CREATININE 0.6 mg/dL (0.55-1.02); Calcium 10.3 mg/dL (8.5-10.1); Chloride 98 mmol/L (98-107); Estimated GFR 108.61 (mL/min/1.73m2); Glucose 108 mg/dL (74-106); Sodium 136 mmol/L (136-145); TSH (W/Ref FT4) 1.38 uIU/mL (0.36-3.74); Total Protein 7.9 g/dL (6.4-8.2)
[2022-02-04 15:46] LABS: Potassium 2.9 mmol/L (3.5-5.1)
== END 2022-02-04 02:39 | disposition home or self-care (01) ==
PROVIDERS: PCP Family Medicine; Visit Provider Family Medicine
DX: R07.9 Chest pain, unspecified (principal); E11.9 Type 2 diabetes mellitus without complications
CPT/HCPCS: 36415; 80053; 85027; 83036; 84443

== ENCOUNTER 2022-04-16 02:37 | Outpatient (CLI) | payer BC, SELFPAY ==
[2022-04-16 15:54] LABS: Anion Gap 10.3 mmol/L (3-11); BUN 15 mg/dL (7-18); CO2 26.7 mmol/L (21.0-32.0); CREATININE 0.7 mg/dL (0.55-1.02); Calcium 10.9 mg/dL (8.5-10.1); Chloride 103 mmol/L (98-107); Estimated GFR 104.65 (mL/min/1.73m2); Glucose 107 mg/dL (74-106); Potassium 3.4 mmol/L (3.5-5.1); Sodium 140 mmol/L (136-145)
== END 2022-04-16 02:38 | disposition home or self-care (01) ==
LOC: LBO 02:37
PROVIDERS: PCP Family Medicine; Visit Provider Family Medicine
DX: E87.6 Hypokalemia (principal); I10 Essential (primary) hypertension; E78.5 Hyperlipidemia, unspecified
CPT/HCPCS: 36415; 80048

== ENCOUNTER 2022-06-11 02:56 | Outpatient (CLI) | payer BC, SELFPAY ==
[2022-06-11 11:22] LABS: BUN 18 mg/dL (7-18); CREATININE 0.7 mg/dL (0.55-1.02); Calcium 10.6 mg/dL (8.5-10.1); Chloride 105 mmol/L (98-107); Glucose 100 mg/dL (74-106); Sodium 139 mmol/L (136-145)
[2022-06-12 08:42] LABS: PHOSPHORUS 3.3 mg/dL (2.6-4.7)
[2022-06-12 09:14] LABS: Vitamin D 25 Total 53.6 ng/mL (30-100)
== END 2022-06-11 02:57 | disposition home or self-care (01) ==
LOC: LBO 02:56
PROVIDERS: PCP Family Medicine; Visit Provider Family Medicine
DX: E87.6 Hypokalemia (principal); E83.52 Hypercalcemia
CPT/HCPCS: 36415; 80048; 82306; 84100

== ENCOUNTER 2022-11-03 09:57 | Outpatient (CLI) | payer BC, SELFPAY ==
[2022-11-03 12:44] LABS: ALT 26 U/L (14-59); AST 16 U/L (15-37); Alkaline Phosphatase 76 U/L (46-116); Anion Gap 8.2 mmol/L (3-11); BUN 18 mg/dL (7-18); Bilirubin, Total 0.6 mg/dL (0.2-1.0); CO2 23.8 mmol/L (21.0-32.0); CREATININE 0.7 mg/dL (0.55-1.02); Calcium 11.3 mg/dL (8.5-10.1); Chloride 104 mmol/L (98-107); Glucose 124 mg/dL (74-106); PHOSPHORUS 4.1 mg/dL (2.6-4.7); Potassium 3.9 mmol/L (3.5-5.1); Sodium 136 mmol/L (136-145); TSH (W/Ref FT4) 1.11 uIU/mL (0.36-3.74); Total Protein 7.4 g/dL (6.4-8.2)
[2022-11-03 18:12] LABS: Parathyroid Hormone,Intact 37 pg/mL (19-88)
[2022-11-04 09:53] LABS: Vitamin D 25 Total 59.4 ng/mL (30-100)
[2022-11-04 15:13] LABS: Albumin 65.1 % (55.8-66.1); Albumin g/dL 4.7 g/dL (3.6-5.2); Total Protein 7.2 g/dL (6.3-8.2)
== END 2022-11-03 09:58 | disposition home or self-care (01) ==
LOC: LOS 09:58
PROVIDERS: PCP Family Medicine; Visit Provider Family Medicine
DX: E83.52 Hypercalcemia (principal); E03.9 Hypothyroidism, unspecified; I10 Essential (primary) hypertension
CPT/HCPCS: 36415; 80053; 82306; 83970; 84100; 84165; 84443

== ENCOUNTER → 2022-11-03 16:23 | Outpatient (CLI) | payer BC, SELFPAY ==
--- NOTE | 2022-11-03 10:00 | DI.RAD_ITS ---
Exam(s) XR LUMBAR SPINE COMPLETE EXAM: XR LUMBAR SPINE COMPLETE CLINICAL HISTORY: LBP M54.4 LOW BACK PAIN. TECHNIQUE: 2D digital imaging was performed. Five views. COMPARISON: No exams were available for comparison FINDINGS: BONES: No fracture or destructive lesion. Vertebral body heights are maintained. No facet hypertroph y identified. there is partial sacralization of L5 vertebral body. There is sacralization of the r ight L5 transverse process. There is bony bridging from the left L5 transverse process to the ileum. DISKS: Intervertebral disc spaces are maintained. Rudimentary disc at L5-S1. Minimal endplate oste ophytes. ALIGNMENT: Lumbar spinal alignment is within normal limits. SOFT TISSUE: Normal. Surgical clips. IMPRESSION: Partial sacralization of L5 with bony bridging between left L 5 transverse process and ilium. DATA REPOSITORY: RADIATION DOSE DELIVERED:
== END ==
PROVIDERS: PCP Family Medicine; Visit Provider Family Medicine
DX: M43.26 Fusion of spine, lumbar region (principal)
CPT/HCPCS: 72110

== ENCOUNTER 2022-11-10 19:06 | Outpatient (REF) | payer BC, SELFPAY ==
[2022-11-11 08:42] LABS: Calcium Urine 17.8 mg/dL (See Note); Calcium Urine 24 hr Unable to calculate mg/24 h (<200); Timed Urine Volume 2900 mL; Urine Collection Period 21.5 Hours
== END 2022-11-10 19:07 | disposition home or self-care (01) ==
LOC: LBN 19:06
PROVIDERS: PCP Family Medicine; Visit Provider Family Medicine
DX: E83.52 Hypercalcemia (principal)
CPT/HCPCS: 81050; 82340

== ENCOUNTER 2022-11-26 03:24 | Outpatient (CLI) | payer BC, SELFPAY ==
[2022-11-26 14:13] LABS: ALT 35 U/L (14-59); AST 19 U/L (15-37); Alkaline Phosphatase 74 U/L (46-116); Anion Gap 9.8 mmol/L (3-11); BUN 19 mg/dL (7-18); Bilirubin, Total 0.6 mg/dL (0.2-1.0); CO2 27.2 mmol/L (21.0-32.0); CREATININE 0.8 mg/dL (0.55-1.02); Calcium 10.8 mg/dL (8.5-10.1); Chloride 101 mmol/L (98-107); Glucose 169 mg/dL (74-106); Potassium 3.4 mmol/L (3.5-5.1); Sodium 138 mmol/L (136-145); Total Protein 7.6 g/dL (6.4-8.2)
[2022-11-26 14:47] LABS: Vitamin D 25 Total 48.3 ng/mL (30-100)
[2022-11-26 21:57] LABS: Ionized Calcium 1.31 mmol/L (1.14-1.35)
== END 2022-11-26 03:25 | disposition home or self-care (01) ==
LOC: LBO 03:24
PROVIDERS: PCP Family Medicine; Visit Provider Family Medicine
DX: E83.52 Hypercalcemia (principal)
CPT/HCPCS: 36415; 80053; 82306; 82330

== ENCOUNTER 2022-11-28 07:07 | Day surgery (SDC) | payer BC, SELFPAY ==
--- NOTE | 2022-11-27 11:05 | W.COLOREPORT ---
Date of service: 11/28/22 Time of Service: 08:38 Colonoscopy Report Date of procedure: 11/28/22 Pre-op diagnosis general: Family history colon cancer in second-degree family member Post-op diagnosis procedure note: other (Sigmoid diverticular disease) Surgeon: Cherri José Anesthesia Type: General:No Airway Estimated blood loss (mL): 0 Pathology: none sent Complications: None Disposition: same day Prep: Miralax/Dulcolax Retraction Time: 8 Procedure Description: After informed consent was obtained the patient was taken to the procedure room and placed in a left decubitous position. Monitors were applied and a time out was done. The patients name, date of , procedure, allergies to medications and metal in their body was reviewed. The patient was then sedated. Once sedated and comfortable a rectal exam was done. External exam was normal. Internal exam revealed a normal sphincter tone and no palpable masses. The scope was then introduced and retrofelexed. No internal hemorrhoids were identified. The scope was then advanced to the cecum without difficulty. The TI and appendiceal orifice were identified. The prep was BBPS 2 in all segments for total of 6. The scope was then slowly retracted over 8 minutes back into the rectum. There are no polyps. She has a few small mouth diverticula confined to the sigmoid colon. There is no signs of active bleeding or infection.. The scope was removed and the patient was woken up and taken back to Same day surgery in stable condition. The patient tolerated the procedure well and there were no immediate complications. Follow up: The patient should follow up in 5 years unless they develop changes in bowel habits or other new gastrointestinal complaints.
--- NOTE | 2022-11-27 11:06 | PDOC.DSDIS_ITS ---
Date of service: 11/28/22 Time of Service: 08:40 Discharge Plan Disposition Patient Disposition: Home Condition: Good Discharge Details Reason For Visit: Colon cancer screening Attending Provider: Cherri José Primary Care Provider: Cynthia Prieto Home Meds and New Rx's Prescriptions: Continued cinnamon bark 500 mg capsule See Rx Instructions PO .COMPLEX Patient Comments: 2 tab PO Daily; Rx Instructions: 2 tab PO Daily; melatonin 10 mg tablet 20 mg PO HS PRN diphenhydramine HCl [Unisom SleepGels] 50 mg capsule 50 mg PO QHS cholecalciferol (vitamin D3) 25 mcg (1,000 unit) capsule 25 mcg PO DAILY biotin 1 mg capsule 1 mg PO DAILY apple cider vinegar 500 mg tablet 500 mg PO DAILY Mirena 20 mcg/24 hours (5 yrs) 52 mg intrauterine device 1 device IY ONCE Rx Instructions: placed 11/25/2018 bupropion HCl 150 mg tablet extended release 24 hr 150 mg PO QAM Qty: 90 4RF valacyclovir 500 mg tablet 500 mg PO BID PRN (Reason: herpes) Qty: 14 3RF potassium chloride 20 mEq tablet extended release 20 meq PO BID Qty: 180 5RF atenolol 50 mg tablet 50 mg PO DAILY Qty: 90 4RF zolpidem 10 mg tablet 10 mg PO QHS PRN (Reason: sleep) Qty: 30 5RF Rx Instructions: use sparingly. Try 5mg nightly amlodipine 5 mg tablet 5 mg PO DAILY Qty: 90 6RF gabapentin 100 mg capsule 100 mg PO TID Qty: 90 4RF Discontinued bisacodyl [Dulcolax (bisacodyl)] 5 mg tablet,delayed release (DR/EC) 5 mg PO ONCE Qty: 4 0RF Rx Instructions: Take per colonoscopy instructions provided by ordering providers office polyethylene glycol 3350 17 gram/dose powder 17 g PO ONCE Qty: 238 0RF Rx Instructions: Take per colonoscopy instructions provided by ordering providers office Discharge Instructions Additional Instructions: DSU Colonoscopy Post- Op Instructions Instructions for Everyone who is given Anesthesia: For your safety, please do the following for the next twenty-four (24) hours: *Do Not operate a motor vehicle (car, truck, motorcycle, etc.) *Do Not drink alcoholic beverages or use any recreational drugs for the first 24 hours or while taking pain medications. The medications in your body may have a reaction that can be dangerous. *Do Not make any important decisions or sign any important papers. Findings: Diverticula. Make sure you are moving your bowels on a regular basis and you are not straining to go to the bathroom. If you find that you are straining, then it is recommended you start a fiber supplement such as Metamucil daily. Follow up: Repeat colonoscopy in 5 years time. 1. No lifting over 20 pounds or strenuous activity for the first 24 hours after your procedure. After 24 hours there are no restrictions on your activity but you may feel fatigued for a few days. 2. After you arrive home you may have a light meal and return to your normal diet as you can tolerate it without feeling sick to your stomach. 3. You may have a bloated, gaseous feeling in your belly (abdomen) after a colonoscopy. Passing gas and belching will help. Walking or lying down on your left side with your knees flexed may relieve the discomfort. Call the office at [phone] (Office) or [phone] (Hospital) right away if you notice any of the following: a.Vomiting of blood or ?coffee ground stools?. b.Rectal bleeding 1Tbsp, blood clots or continuous bleeding. c.Severe belly (abdominal) pain. d.A hard distended belly (abdomen) and an inability to pass gas. 4. Please don?t expect to have a normal BM (bowel movement) for 2-3 days after your procedure. 5. If there are questions regarding the findings of your procedure, please contact your doctor 6. If you are unable to contact your doctor with a problem, contact the hospital at [phone]. 7. Continue all your regular medications unless directed otherwise. I understand the above instructions and have no questions. Signature of Patient or Adult Escort Name of Responsible Adult Escort Signature of Nurse Date/Time Activity:: See above Diet:: See above Discharge Orders Discharge Orders: Discharge Order (Routine); Ordered 11/28/22 Ordered By: Cherri José DS: Diagnosis Discharge Diagnosis (1) Screening for malignant neoplasm of colon performed: Status: Acute Asessment and Plan: The patient is seen and examined after their colonoscopy.? The patient has been able to pass gas.? They are not having abdominal pain.? They have been able to tolerate liquids and a snack.? They do not have any nausea or vomiting.? They are not having any chest pain or shortness of breath.??? They are not having any rectal bleeding. Their vital signs have been stable-see nursing notes. We discussed findings during their colonoscopy, and any biopsies that were done/polyps that were removed. The patient will be sent a letter with any biopsy results, and when to repeat the colonoscopy.-see discharge instructions. Patient was given explicit instructions to follow-up regarding colonoscopy-refer to discharge instructions.? We reviewed resumption of medications. Patient verbalized understanding and discharged in stable and satisfactory condition- See nursing notes. (2) Elevated blood sugar: (3) Poorly controlled diabetes mellitus: (4) Obesity: Status: Chronic (5) Polycystic ovaries: Status: Chronic (6) Hyperlipidemia: Status: Chronic (7) Essential hypertension: Status: Chronic (8) Diverticula of colon: Status: Acute
--- NOTE | 2022-11-28 06:16 | W.ANESPRE ---
General Info Date of Service Date Performed: 11/28/22 Height: 5 ft 3.25 in Weight: 168.2 kg Body Mass Index (BMI): 65.1 Surgical Procedure: Operation Date: 11/28/22 08:20 Proposed Procedure Side Surgeon alondra José, DO Meds Allergies and Home Medications Allergies Allergy/AdvReac Type Severity Reaction Status Date / Time Penicillins Allergy Mild HIVES Verified 11/28/22 07:25 Home Medication Medication Instructions Recorded cinnamon bark 500 mg capsule See Rx Instructions PO .COMPLEX 11/24/17 apple cider vinegar 500 mg tablet 500 mg PO DAILY 05/10/18 biotin 1 mg capsule 1 mg PO DAILY 05/10/18 levonorgestrel 21 mcg/24 hours (8 1 device intrauterine ONCE 11/25/18 yrs) 52 mg intrauterine device (Mirena) cholecalciferol (vitamin D3) 25 25 mcg PO DAILY 05/01/20 mcg (1,000 unit) capsule diphenhydramine HCl 50 mg capsule 50 mg PO QHS 05/01/20 ([employer] SleepGels) valacyclovir 500 mg tablet 500 mg PO BID PRN herpes #14 tabs 04/01/21 potassium chloride 20 mEq 20 meq PO BID #180 tabs 02/05/22 tablet,extended release atenolol 50 mg tablet 50 mg PO DAILY #90 tabs 04/17/22 zolpidem 10 mg tablet 10 mg PO QHS PRN sleep #30 tabs 06/05/22 melatonin 10 mg tablet 20 mg PO HS PRN 06/12/22 amlodipine 5 mg tablet 5 mg PO DAILY #90 tabs 07/07/22 bupropion HCl 150 mg 24 hr tablet, 150 mg PO QAM #90 tabs 11/03/22 extended release gabapentin 100 mg capsule 100 mg PO TID #90 caps 11/10/22 Current Visit Medications: Current Medications Generic Name Dose Route Start Last Admin Trade Name Freq PRN Reason Stop Dose Admin Hyoscyamine Sulfate 0.125 mg 11/28/22 09:19 Hyoscyamine 0.125 Mg Sl/Oral/Chew SL 12/28/22 09:18 DIRECTED PRN Ringer's Solution 1,000 mls @ 80 mls/hr 11/28/22 06:00 IV 12/27/22 23:59 INFUSION TAM IV Miscellaneous Supplies 1 each 11/28/22 06:00 Iv Access IV 12/27/22 23:59 DIRECTED [facility] Ondansetron HCl 4 mg 11/28/22 09:19 Ondansetron 4 Mg/2 Ml Vial IVP 12/28/22 09:18 Q4H PRN PRN Nausea / Vomiting Sodium Chloride 0 ml 11/28/22 06:00 Normal Saline Flush 10 Ml Syr IV 12/27/22 23:59 PRN PRN Sodium Chloride 0 ml 11/28/22 06:00 Normal Saline 10 Ml Vial IJ 12/27/22 23:59 DIRECTED PRN Sterile Water 0 ml 11/28/22 06:00 Water,Injection,Sterile 10 Ml Vial IJ 12/27/22 23:59 DIRECTED PRN PFSH Active Problems Active Problems: Problem Status Onset Code Essential hypertension 01/31/13 I10 Hyperlipidemia 06/29/12 E78.5 Increased body mass index R63.8 Polycystic ovaries E28.2 Primary insomnia 11/27/14 F51.01 Rosacea, acne 04/30/15 L71.9 Annual physical exam Z00.00 Low back pain M54.5 Encounter for annual physical exam 09/04/15 Z00.00 Encounter for insertion of mirena IUD Z30.430 Obesity E66.9 Actinic keratosis L57.0 Chest pain R07.9 Potassium (K) deficiency E87.6 Encounter for screening colonoscopy Z12.11 Serum calcium elevated E83.52 Skin lesion L98.9 Lumbar radiculopathy M54.16 Screening for malignant neoplasm of colon performed Z12.11 Medical History Medical History Elevated blood sugar Menorrhagia Pannus, abdominal Poorly controlled diabetes mellitus (08/07/14) Pt. no longer has Shingles Syncopal episodes Medical History Comments:: Pt. states she said her dad does but no specified Surgical History Surgical History (Updated 11/28/22 @ 07:25 by Aylin Garrett) H/O section 09/09/98 History of section History of section Tobacco Smoking/Tobacco Use Status: Former Tobacco Use Passive smoking exposure: Yes Alcohol Alcohol Intake: current Alcohol intake frequency: a few times a month Alcohol type: beer and hard liquor Substance Use Substance use: Never Substance use type: former substance user and marijuana Details: THC drops and gummies Prental History History 1 Para 1 Hx # Term Pregnancies Multiple births Hx # Pregnancies Ectopic pregnancies AB induced Hx Number of Living Children AB spontaneous Vital Signs and Lab Results Vital Signs Most Recent Vital Signs in EMR: Temp Pulse Resp BP Pulse Ox 36.6 C 91 H 20 138/102 H 99 11/28/22 07:15 11/28/22 07:15 11/28/22 07:15 11/28/22 07:15 11/28/22 07:15 Lab Results Blood Type / Crossmatch: No Data to Display Complete Blood Count: No Data to Display Complete Metabolic Panel: Sodium 138 mmol/L (136-145) 11/26/22 13:32 Potassium 3.4 mmol/L (3.5-5.1) L 11/26/22 13:32 Chloride 101 mmol/L (98-107) 11/26/22 13:32 Carbon Dioxide 27.2 mmol/L (21.0-32.0) 11/26/22 13:32 BUN 19 mg/dL (7-18) H 11/26/22 13:32 Creatinine 0.8 mg/dL (0.55-1.02) 11/26/22 13:32 Est GFR (CKD-EPI 2020) 88.60 (mL/min/1.73m2) 11/26/22 13:32 Calcium 10.8 mg/dL (8.5-10.1) H 11/26/22 13:32 Ionized Calcium 1.31 mmol/L (1.14-1.35) 11/26/22 13:32 Albumin 4.0 g/dL (3.4-5.0) 11/26/22 13:32 Glucose 169 mg/dL (74-106) H 11/26/22 13:32 Liver Function Panel: Alanine Aminotransferase (ALT/SGPT) 35 U/L (14-59) 11/26/22 13:32 Aspartate Amino Transf (AST/SGOT) 19 U/L (15-37) 11/26/22 13:32 Coagulation Panel: No Data to Display Cardiac Panel: No Data to Display Arterial Blood Gas: No Data to Display Venous Blood Gas: No Data to Display Pancreas Panel: No Data to Display Thyroid Panel: Thyroid Stimulating Hormone (TSH) 1.11 uIU/mL (0.36-3.74) 11/03/22 10:26 Infectious Disease: No Data to Display Blood Cultures: No Data to Display Toxicology Panel: No Data to Display Panel: No Data to Display Imaging and Studies Imaging and Studies Study information below may be from another EMR and interpreted by another provider. Please see original notes in EMR for more complete details. EKG Summary: 12/14: sinus rhythm. Stress Test Summary: 01/14: 11.7 METS, 87% predicated HR. no evidence of ischemia on ECG. Anesthesia Assessment and Plan Anesthesia History Personal History: No History of Anesthesia Complications Family History: Other Exercise Tolerance Exercise Tolerance: Metabolic Equivalents>4 Cardiac & Pulmonary Exam Cardiac Exam: Normal S1/S2 Heart Sounds Pulmonary Exam: Clear Bilateral Breath Sounds Implantable Cardiac Device Does patient have a Pacemaker or an ICD?: No Airway Exam Known Difficult Airway: No Mallampati Class: 2 Mouth Opening: Normal (> 3cm) Thyromental Distance: Greater than 3 cm Neck Range of Motion: Full ROM Neck Circumference: Normal Teeth Condition: Normal Dentition ASA Classification ASA Score: ASA 2 Emergency Case?: No NPO Status NPO Status: NPO Clears >2 hours, Solids >8 hours Status Status: Negative HCG Anesthesia Plan Resuscitation Status: Full Code Anesthesia Technique: General Anesthesia Airway Planned: Natural Airway Monitors Used: Standard Monitors Preoperative Comments:: 52 yo female for colo. Sig PMHx: HTN (amlodipine, atenolol), low back pain, DM (last a1c 5.7. no longer), former smoker, occ EtOH/cannabis.
[2022-11-28 07:15] VITALS: BP 138/102; PULSE 91; RESP 20; TEMP 36.6; O2SAT 99
[2022-11-28 07:42] VITALS: BMI 65.1
[2022-11-28] MEDS: Lactated Ringers 1,000 ML 80 ML IV (07:45)
[2022-11-28 08:41] VITALS: BP 125/78; PULSE 90; RESP 16; TEMP 36; O2SAT 98
[2022-11-28 09:01] VITALS: BP 145/98; PULSE 90; RESP 16; TEMP 36.4; O2SAT 99
--- NOTE | 2022-11-28 09:49 | W.ANESPOSTOP ---
Postoperative Evaluation Date, Time and Location Date Performed: 11/28/22 Time Performed: 09:00 Patient Location: Day Surgery Unit Vital Signs Most Recent Imported Vital Signs: Most Recent Vital Signs Temp Pulse Resp BP Pulse Ox 36.4 C L 90 16 125/78 98 11/28/22 09:01 11/28/22 08:41 11/28/22 08:41 11/28/22 08:41 11/28/22 08:41 Pain Score Most Recent Pain Score: Most Recent Pain Score Pain Level 0 11/28/22 08:41 Assessment Mental Status: Awake (Alert & Oriented to Patient Baseline) Airway and Respiratory Function: Patent airway with normal (patient baseline) respiratory exam Cardiovascular Function: Hemodynamically Stable Hydration Status: Adequately Hydrated Nausea & Vomiting: No Nausea or Vomiting Pain: Pt. Denies Any Pain Peripheral Nerve Block: Patient did not receive a nerve block
== END 2022-11-28 09:23 | disposition home or self-care (01) ==
PROVIDERS: PCP Family Medicine; Visit Provider Surgery
PROC: 0DJD8ZZ Inspection of Lower Intestinal Tract, Via Natural or Artificial Opening Endoscopic (ICD-10-PCS; CPT 45378; principal; 2022-11-28 08:15)
DX: Z12.11 Encounter for screening for malignant neoplasm of colon (principal); I10 Essential (primary) hypertension; E78.5 Hyperlipidemia, unspecified; Z80.0 Family history of malignant neoplasm of digestive organs; K57.30 Diverticulosis of large intestine without perforation or abscess without bleeding
CPT/HCPCS: 45378; 81025; J2001

== ENCOUNTER 2022-12-02 10:17 | Outpatient (REF) | payer BC, SELFPAY ==
[2022-12-02 12:50] LABS: Creatinine,Urine 33.51 mg/dL
[2022-12-02 12:52] LABS: Creatinine,24hr Ur 1.07 g/24hr (0.60-1.80); Total Volume 3200 ml
[2022-12-03 10:08] LABS: Calcium Urine 13.2 mg/dL (See Note); Calcium Urine 24 hr 422 mg/24hr (100-300); Timed Urine Volume 3200 mL
== END 2022-12-02 10:18 | disposition home or self-care (01) ==
LOC: LBN 10:17
PROVIDERS: PCP Family Medicine; Visit Provider Surgery
DX: E83.52 Hypercalcemia (principal)
CPT/HCPCS: 81050; 82340; 82570

== ENCOUNTER 2023-02-27 02:32 | Outpatient (CLI) | payer BC, SELFPAY ==
[2023-02-27 13:50] LABS: ALT 32 U/L (14-59); AST 16 U/L (15-37); Albumin 3.7 g/dL (3.4-5.0); Alkaline Phosphatase 67 U/L (46-116); Anion Gap 8.7 mmol/L (3-11); BUN 14 mg/dL (7-18); Bilirubin, Total 0.3 mg/dL (0.2-1.0); CO2 24.3 mmol/L (21.0-32.0); CREATININE 0.6 mg/dL (0.55-1.02); Chloride 104 mmol/L (98-107); Estimated GFR 107.93 (mL/min/1.73m2); Glucose 110 mg/dL (74-106); Potassium 4.2 mmol/L (3.5-5.1); Sodium 137 mmol/L (136-145); Total Protein 6.8 g/dL (6.4-8.2)
[2023-02-28 21:57] LABS: Ionized Calcium 1.29 mmol/L (1.14-1.35)
== END 2023-02-27 02:33 | disposition home or self-care (01) ==
PROVIDERS: PCP Family Medicine; Visit Provider Family Medicine
DX: I10 Essential (primary) hypertension (principal); E83.52 Hypercalcemia
CPT/HCPCS: 36415; 80053; 82330

== ENCOUNTER → 2023-03-10 02:25 | Outpatient (CLI) | payer BC, SELFPAY ==
--- NOTE | 2023-03-10 13:06 | DI.MAMMO_ITS ---
Exam(s) MAMMO SCREENING EXAM: MAMMO SCREENING CLINICAL HISTORY: screening,Z12.39. TECHNIQUE: Bilateral full field digital CC and MLO mammographic images were obtained with 3D tomosyn thesis and utilizing computer aided detection (CAD). COMPARISON: Prior mammograms were reviewed. FINDINGS: No new focal findings in the right breast. In the left breast on the 3D cc imaging there is an asymmetric density-possible nodule measuring 6 x 4 mm located 3.5 cm in from the nipple, slightly lateral of center. There are no malignant appearing microcalcification groups in this region nor elsewhere in either laura ast. There is no significant architectural distortion nor skin thickening-retraction. IMPRESSION: 1. No radiographic evidence of malignancy in right breast. 2. 6 x 4 mm possible nodule in the left breast. Spot compression view and ultrasound recommended. BI-RADS Category 0 - Assessment Incomplete: Need additional imaging evaluation Breast Density - Category B - Scattered areas of fibroglandular density Breast density Category C or D implies that the patient has dense breast tissue. Dense breast tissue can make it harder to find cancer on a mammogram. Dense breast tissue is also associated with an incr eased risk of breast cancer. This information about the result of the mammogram report was provided to the patient to raise their awareness. Use this report when you speak with the patient about their risks for breast cancer, which includes their family history. At that time, you may recommend additional screening tests (Ultrasoun d or MRI) as these tests may add significant information. A negative radiographic report should not delay biopsy if a dominant or clinically suspicious mass is present. Up to ten percent of cancers are not identified on mammography. A negative report may reinforce clinical impression. Adenosis and dense breasts may obscure an underlying neoplasm. False positive reports average 6 to 10%. Patient will receive a letter notifying them of these results.
[2023-03-10] MEDS: Barium Sulfate 2% W/V-Creamy Vanilla Smoothie 450 ML BTL 900 ML PO (13:30)
[2023-03-10] MEDS: Omnipaque 350 MG/ML 100 ML BTL IJ (15:32)
[2023-03-10] MEDS: Normal Saline - Diluent 50 ML VIAL IJ (15:33)
--- NOTE | 2023-03-10 15:50 | DI.CTLCSR_ITS ---
Exam(s) CT CHEST LUNG CANCER SCREEN EXAM: CT CHEST LUNG CANCER SCREEN CLINICAL HISTORY: Screening for lung cancer,FORMER SMOKER, Z87.891 TECHNIQUE: Imaging Protocol: Axial computed tomography images with coronal and sagittal reformatted images were created and reviewed. Low dose screening protocol. COMPARISON: CR,XR XR CHEST 2V PA LATERAL from 01/25/2022 FINDINGS: Tracheobronchial tree: No bronchiectasis or mucus plugging.. Mediastinum and Yolanda: No dominant adenopathy or fluid collection. Pulmonary parenchyma: No consolidation or dominant measurable mass. Mild emphysematous changes. Lung Nodules: None. Pleura: No effusion. No pneumothorax. Heart: The heart is mildly dilated, left ventricle. No coronary artery calcifications are seen. Aorta: Thoracic aorta non-dilated. Upper abdomen: Unremarkable. Bones: Unremarkable for age. Soft Tissues: Unremarkable. IMPRESSION: No suspicious pulmonary nodules. Lung RADS Cat 1 - Negative: No nodules and definitely benign nodules Lung-RADS 1.0 CATEGORIES: Category 0 - Prior chest CT exam(s) being located for comparison. Category 1 - Annual screening in 12 months. No nodules or definitely benign nodules. Category 2 - Annual screening in 12 months. Benign appearance. Nodules with low likelihood of becomin g active cancer. Category 3 - 6-month follow-up. Probably benign. Short-term follow-up suggested. Nodules with low lik elihood of becoming active cancer. Category 4A - 3-month follow-up and CT/PET if >8 mm in size. Suspicious finding. Findings which requi re additional testing. Category 4B - Findings which require additional testing and tissue sampling. Category 4X - Category 3 or 4 nodules with additional features or imaging findings that increases the suspicion of malignancy. Modifier S- Potentially clinically significant findings (non lung cancer) RADIATION DOSE DELIVERED: 75.77mGy.cm Total DLP DATA REPOSITORY: All CT scans at this facility are submitted to the National Radiology Data Registry (NRDR) Dose Index Registry (DIR) with the [employer] (A[employer]). RADIATION OPTIMIZATION: All CT scans at this facility use at least one of these dose optimization te chniques: automated exposure control; mA and/or kV adjustment per patient size (includes targeted exa ms where dose is matched to clinical indication); or iterative reconstruction.
--- NOTE | 2023-03-10 15:50 | DI.CT_ITS ---
Exam(s) CT ABDOMEN PELVIS W EXAM: CT ABDOMEN PELVIS W CLINICAL HISTORY: ? diverticulosis,ABD MASS,R19.00. TECHNIQUE: Imaging Protocol: Axial computed tomography images with coronal and sagittal reformatted images were created and reviewed CONTRAST MATERIAL: Intravenous: Omnipaque 350 Contrast volume:100 ml Oral: yes / COMPARISON: No exams were available for comparison FINDINGS: ABDOMEN and PELVIS: Lung Bases: No acute findings. Liver: Normal density. No measurable mass. Gallbladder and biliary tract: No radiodense calculus or dilation. Pancreas: Normal density. No abnormal calcifications or inflammatory process. No evidence of mass. Spleen: Normal. Kidneys: Normal size, contour and axis. No radiodense stones. No obstructive uropathy. No suspicious masses seen. Adrenal glands: No masses seen. Vasculature: Abdominal aorta non-dilated. Soft tissues: Surgical clips at anterior abdominal wall. No hernias. Bladder: No gross wall thickening. No calculi.No focal mass. Bowel: There a bowel is well opacified with administered oral contrast. Arm diverticulosis noted at lower descending and sigmoid colon. No evidence of diverticulitis. No obstruction. No bowel wall thickening. Appendix normal. Peritoneal cavity: No ascites. No focal collection or mesenteric inflammatory response. Bones: Unremarkable for age. Reproductive organs: IUD within uterus. Posterior right-sided fibroid. Lymph nodes: Unremarkable. IMPRESSION:: Diverticulosis. No evidence of diverticulitis. No evidence of mass. RADIATION DOSE DELIVERED: 1,133.4mGy.cm Total DLP DATA REPOSITORY: All CT scans at this facility are submitted to the National Radiology Data Registry (NRDR) Dose Index Registry (DIR) with the [employer] (ACR). RADIATION OPTIMIZATION: All CT scans at this facility use at least one of these dose optimization te chniques: automated exposure control; mA and/or kV adjustment per patient size (includes targeted exa ms where dose is matched to clinical indication); or iterative reconstruction.
== END ==
PROVIDERS: PCP Family Medicine; Visit Provider Family Medicine
DX: Z12.31 Encounter for screening mammogram for malignant neoplasm of breast (principal); K57.30 Diverticulosis of large intestine without perforation or abscess without bleeding; Z87.891 Personal history of nicotine dependence; R92.8 Other abnormal and inconclusive findings on diagnostic imaging of breast; Z12.2 Encounter for screening for malignant neoplasm of respiratory organs
CPT/HCPCS: 71271; 77063; 77067; 74177; J3490

== ENCOUNTER → 2023-03-18 01:19 | Outpatient (CLI) | payer BC, SELFPAY ==
--- NOTE | 2023-03-18 | DI.MAMMO_ITS ---
Exam(s) MG MAMMO SCREEN CALL BACK UNI US BREAST LT COMPLETE EXAM: MG MAMMO SCREEN CALL BACK UNI CLINICAL HISTORY: 6X4 MM POSSIBLE NODULE LEFT BREAST R92.8 ABNL MAMMO. TECHNIQUE: Craniocaudal and mediolateral oblique spot compression digital Mammography views of the breast followed by Tomosynthesis and breast ultrasound. COMPARISON: MG Screening Bilat Mammo from 10/09/2015 MG MG mammo screening from 11/16/2017 US US breast RT limited from 11/17/2017 MG MG MAMMO SCREENING from 12/19/2020 MG MG MAMMO SCREENING from 03/10/2023 FINDINGS: Mammography/Tomosynthesis: Masses/Architectural Distortion: None seen. Microcalcifictions: No suspicious pleomorphic-type are seen. Skin Thickening/Nipple Retraction: None. Left breast US: Echotexture: Normal appearance of the glandular tissue. Shadowing: No suspicious foci. Cyst: None. Solid lesions: None seen. Ductal dilation: None. IMPRESSION: 1. No evidence of malignancy is noted. 2. Unless there is more urgent need, follow-up screening mammography is recommended, as per [place] [employer] guidelines. 3. The findings were discussed with the patient on the date of the examination. BI-RADS Category 1 - Negative Breast Density - Category B - Scattered areas of fibroglandular density A negative radiographic report should not delay biopsy if a dominant or clinically suspicious mass is present. Up to ten percent of cancers are not identified on mammography. A negative report may reinforce clinical impression. Adenosis and dense breasts may obscure an underlying neoplasm. False positive reports average 6 to 10%. Patient will receive a letter notifying them of these results.
== END ==
PROVIDERS: PCP Family Medicine; Visit Provider Family Medicine
DX: Z12.31 Encounter for screening mammogram for malignant neoplasm of breast (principal); R92.8 Other abnormal and inconclusive findings on diagnostic imaging of breast
CPT/HCPCS: 76642; 77063; 77067

== ENCOUNTER 2023-03-18 03:10 | Outpatient (CLI) | payer BC, SELFPAY ==
[2023-03-18 13:03] LABS: HCT 44.2 % (36.0-46.0); HGB 14.6 g/dL (11.2-15.7); MCH 27.8 pg (27.0-33.0); MCV 84 fL (80-95); MPV 10.3 fL (8.0-11.0); Platelet Count 328 10^3/uL (130-400); RBC 5.26 10^6/uL (3.93-5.22); RDW 12.7 % (11.7-14.6); RDW-SD 39.3 fL; WBC 9.28 10^3/uL (4.4-10.8)
[2023-03-18 13:07] LABS: Bilirubin Negative (Negative); Blood Negative (Negative); Clarity Clear (Clear); Glucose Negative (Negative); Ketones Negative (Negative); Leukocyte Esterase Negative (Negative); Nitrite Negative (Negative); Urobilinogen 0.2 mg/dL (Up to 0.2); pH 6.5 (5-8)
[2023-03-18 13:32] LABS: ALT 24 U/L (14-59); AST 14 U/L (15-37); Albumin 3.9 g/dL (3.4-5.0); Alkaline Phosphatase 81 U/L (46-116); Anion Gap 10.5 mmol/L (3-11); BUN 15 mg/dL (7-18); Bilirubin, Total 0.4 mg/dL (0.2-1.0); CO2 25.5 mmol/L (21.0-32.0); CREATININE 0.7 mg/dL (0.55-1.02); Calcium 10.5 mg/dL (8.5-10.1); Chloride 104 mmol/L (98-107); Glucose 119 mg/dL (74-106); Potassium 4.2 mmol/L (3.5-5.1); Sodium 140 mmol/L (136-145); Total Protein 7.5 g/dL (6.4-8.2)
[2023-03-18 13:37] LABS: Hemoglobin A1C 5.6 % (<5.7)
[2023-03-24 16:18] LABS: Result Summary NEGATIVE; Specimen WB Whole Blood
== END 2023-03-18 03:11 | disposition home or self-care (01) ==
LOC: LBO 03:10
PROVIDERS: PCP Family Medicine; Visit Provider Family Medicine
DX: I10 Essential (primary) hypertension; R71.8 Other abnormality of red blood cells; R30.0 Dysuria; E11.9 Type 2 diabetes mellitus without complications
CPT/HCPCS: 36415; 80053; 81256; 85027; 81003; 83036

== ENCOUNTER → 2023-03-26 02:29 | Outpatient (CLI) | payer BC, SELFPAY ==
--- NOTE | 2023-03-26 | DI.DEXA_ITS ---
Exam(s) XR DEXA BONE DENSITY W/WO JOAQUIM EXAM: XR DEXA BONE DENSITY W/WO JOAQUIM CLINICAL HISTORY: PRIMARY HYPERPARATHYROIDISM,E21.0,? OSTEOPOROSIS TECHNIQUE: Routine DEXA evaluation of the lumbar spine, hip, or forearm. COMPARISON: No exams were available for comparison FINDINGS: Performed on a Hologic unit. Lateral image: No compression fracture evident. Lumbar Spine total T-score: Long 0.8 Hip total T-score:0.4 Independent reading at the level of the femoral neck yields T-score of -0.6 Forearm total T-score: 0.4 IMPRESSION: Bone mineral density measures in the normal range. Fracture risk is low. Note: Any spine fracture indicates 5x risk for subsequent spine fracture and 2x risk for subsequent h ip fracture. World Health Organization criteria for BMD interpretation classify patients: Normal...... T- Score at or above -1.0 Osteopenic... T- Score between -1.0 and -2.5 Osteoporosis... T-Score at or below -2.5
== END ==
PROVIDERS: PCP Family Medicine; Visit Provider Internal Medicine
DX: Z13.820 Encounter for screening for osteoporosis (principal); E21.0 Primary hyperparathyroidism
CPT/HCPCS: 77080

== ENCOUNTER 2023-03-26 13:14 | Outpatient (CLI) | payer BC, SELFPAY ==
[2023-03-26 12:19] LABS: Albumin 3.5 g/dL (3.4-5.0); Calcium 9.7 mg/dL (8.5-10.1)
[2023-03-26 12:46] LABS: Vitamin D 25 Total 38.3 ng/mL (30-100)
[2023-03-26 17:42] LABS: Parathyroid Hormone,Intact 77 pg/mL (19-88)
== END 2023-03-26 13:15 | disposition home or self-care (01) ==
LOC: LBO 13:14
PROVIDERS: PCP Family Medicine; Visit Provider Internal Medicine
DX: E21.0 Primary hyperparathyroidism (principal)
CPT/HCPCS: 36415; 82306; 82040; 82310; 83970

== ENCOUNTER 2023-05-15 15:33 | Outpatient (REF) | payer BC, SELFPAY ==
[2023-05-15 16:30] LABS: Bilirubin Negative (Negative); Blood Negative (Negative); Clarity Sl Cloudy (Clear); Glucose Negative (Negative); Ketones Negative (Negative); Leukocyte Esterase Negative (Negative); Nitrite Negative (Negative); Urobilinogen 0.2 mg/dL (Up to 0.2)
== END 2023-05-15 15:34 | disposition home or self-care (01) ==
LOC: LBN 15:33
PROVIDERS: PCP Family Medicine; Visit Provider Family Medicine
DX: R30.0 Dysuria (principal)
CPT/HCPCS: 81003

== ENCOUNTER 2023-10-16 00:41 | Outpatient (CLI) | payer BC, SELFPAY ==
[2023-10-16 14:10] LABS: ALT 40 U/L (14-59); AST 20 U/L (15-37); Albumin 3.7 g/dL (3.4-5.0); Alkaline Phosphatase 98 U/L (46-116); Anion Gap 10.7 mmol/L (3-11); BUN 14 mg/dL (7-18); Bilirubin, Total 0.33 mg/dL (0.2-1.0); CO2 22.3 mmol/L (21.0-32.0); CREATININE 0.7 mg/dL (0.55-1.02); Calcium 9.2 mg/dL (8.5-10.1); Chloride 104 mmol/L (98-107); Estimated GFR 103.35 (mL/min/1.73m2); Glucose 154 mg/dL (74-106); Potassium 3.8 mmol/L (3.5-5.1); Sodium 137 mmol/L (136-145); Total Protein 7.1 g/dL (6.4-8.2)
[2023-10-16 21:48] LABS: Ionized Calcium 1.13 mmol/L (1.14-1.35)
[2023-10-16 22:26] LABS: Parathyroid Hormone,Intact 38 pg/mL (19-88)
== END 2023-10-16 00:42 | disposition home or self-care (01) ==
LOC: LBO 00:41
PROVIDERS: PCP Family Medicine; Visit Provider Family Medicine
DX: E21.3 Hyperparathyroidism, unspecified (principal); I10 Essential (primary) hypertension
CPT/HCPCS: 36415; 80053; 82330; 83970

== ENCOUNTER 2023-11-05 03:42 | Outpatient (CLI) | payer BC, SELFPAY ==
[2023-11-05 22:56] LABS: Parathyroid Hormone,Intact 36 pg/mL (19-88)
== END 2023-11-05 03:43 | disposition home or self-care (01) ==
PROVIDERS: PCP Family Medicine; Visit Provider Surgery
DX: Z98.890 Other specified postprocedural states (principal); Z90.89 Acquired absence of other organs
CPT/HCPCS: 36415; 82310; 83970

== ENCOUNTER 2023-12-21 15:00 | Emergency (ER) | payer BC, SELFPAY ==
[2023-12-21 15:02] VITALS: BP 133/84; PULSE 73; RESP 16; TEMP 37.2; O2SAT 96
--- NOTE | 2023-12-21 15:30 | DI.RAD_ITS ---
Exam(s) XR PORTABLE CHEST AP EXAM: XR PORTABLE CHEST AP CLINICAL HISTORY: r/o pneumonia. TECHNIQUE: 2D digital imaging was performed. COMPARISON: CR,XR XR CHEST 2V PA LATERAL from 01/25/2022 FINDINGS: Single AP portable view. Heart size is upper normal. The mediastinum is not widened. Lungs are clear. No infiltrates nor obvious pleural effusions. IMPRESSION: No acute pulmonary findings on this single AP portable view of the chest. DATA REPOSITORY: RADIATION DOSE DELIVERED:
--- NOTE | 2023-12-21 16:27 | W.ED.GENAD ---
Discharge Plan Disposition Patient Disposition: Home Condition: Good Discharge Details Clinical Impression: URI (upper respiratory infection), Acute left otitis media, Cough Primary Care Provider: Cynthia Prieto ED Provider: Jose Ibarra Home Meds and New Rx's Prescriptions: New azithromycin 250 mg tablet 250 mg PO DAILY 4 Days Qty: 4 0RF Rx Instructions: start on day 2 of therapy Continued cinnamon bark 500 mg capsule See Rx Instructions PO .COMPLEX Patient Comments: 2 tab PO Daily; Rx Instructions: 2 tab PO Daily; valacyclovir 500 mg tablet 500 mg PO BID PRN (Reason: herpes) Qty: 14 3RF hydroxyzine HCl 10 mg tablet 10 mg PO QHS ondansetron HCl 4 mg tablet 4 mg PO Q8H PRN (Reason: nausea and vomiting) Qty: 10 0RF codeine-guaifenesin 10-100 mg/5 mL liquid 5 ml PO Q6H PRN (Reason: flu symptoms) Qty: 120 0RF biotin 1 mg capsule 1 mg PO DAILY apple cider vinegar 500 mg tablet 500 mg PO DAILY Mirena 20 mcg/24 hours (5 yrs) 52 mg intrauterine device 1 device IY ONCE Rx Instructions: placed 11/25/2018 amlodipine 5 mg tablet 5 mg PO DAILY Qty: 90 6RF atenolol 50 mg tablet 50 mg PO DAILY Qty: 90 4RF sertraline 50 mg tablet 50 mg PO DAILY Qty: 90 4RF zolpidem 10 mg tablet 10 mg PO QHS PRN (Reason: sleep) Qty: 15 0RF Rx Instructions: use sparingly. Try 5mg nightly Zepbound 2.5 mg/0.5 mL pen injector 2.5 mg subcut QWEEK Qty: 6 4RF benzonatate 100 mg capsule 100 mg PO TID Patient Comments: TAKE ONE CAPSULE BY MOUTH THREE TIMES A DAY NEEDED FOR COUGH Discontinued diphenhydramine HCl [Unisom SleepGels] 50 mg capsule 50 mg PO QHS doxycycline hyclate 100 mg tablet 100 mg PO BID Qty: 14 0RF Discharge Instructions Instructions: Ear Infections in Adults (DC) Additional Instructions: At this time you still do have a notable left-sided ear infection. Thankfully your chest x-ray does not show any evidence of pneumonia. Unfortunately the doxycycline does not appear to be effective for the treatment of the ear infection. Because of your penicillin allergies we will transition you to azithromycin. Please take this as prescribed. It has been sent to your pharmacy on file. Please stop taking the Claritin/Benadryl for the next week or so as this can increase the likelihood of rupture for your tympanic membranes in the setting of this infection. Please take 800 mg of ibuprofen/Motrin every 6 hours to help with the inflammation and pain. You can also take up to 1000 mg of Tylenol every 6 hours as well as needed. Please take the Symbicort inhaler, 2 puffs every 12 hours for the next 1 to 2 weeks. Please use the Daniella pot or hot steamy rooms to help with your nasal congestion. Please continue to use the nasal spray as prescribed. If you notice any worsening of your symptoms, or any new symptoms such as vomiting, diarrhea, fever, chills, shortness of breath, chest pain, numbness, weakness, or fainting , please return immediately to the emergency department for reevaluation. Please follow up with your primary care provider as soon as possible for reassessment and reevaluation. As always, it was a pleasure participating in your medical care today. Referrals: Cynthia Prieto [place], [place] [Primary Care Provider] - Discharge Data Discharge Date/Time-TO BE ENTERED AT DEPARTURE: 12/21/23 17:07 HPI General Date/Time Provider Initiated Documentation: 12/21/23 15:03. HPI Narrative: 53-year-old female with past medical history of borderline diabetes, hypertension, previous tobacco abuse quit over a year ago, high cholesterol, who presents today for left ear pain and intermittent fever. Patient states that 1 week ago she developed mild fever sore throat and headache. Sore throat and headache got better, but she continued to have the intermittent fever with congestion runny nose as well as cough. 5 days ago she developed left-sided ear pain. 3 to 4 days ago she was started on doxycycline, Claritin, nasal spray. Unfortunately patient states that she has not had any improvement of her left ear pain, runny nose congestion or cough. She does have a penicillin allergy which was significant for notable hives and rash when she was a child. She denies any other complaints at this time. She denies any neck stiffness. She denies any hemoptysis. She denies any vision changes. She denies any drainage from her ears. Related Data Home Medications ?Medication ?Instructions ?Recorded ?Confirmed cinnamon bark 500 mg capsule See Rx Instructions PO .COMPLEX 11/24/17 12/21/23 apple cider vinegar 500 mg tablet 500 mg PO DAILY 05/10/18 12/21/23 biotin 1 mg capsule 1 mg PO DAILY 05/10/18 12/21/23 levonorgestrel 21 mcg/24 hr (up to 1 device intrauterine ONCE 11/25/18 12/21/23 8 years) 52 mg intrauterine device (Mirena) valacyclovir 500 mg tablet 500 mg PO BID PRN herpes #14 tabs 12/30/22 12/21/23 sertraline 50 mg tablet 50 mg PO DAILY #90 tabs 10/12/23 12/21/23 amlodipine 5 mg tablet 5 mg PO DAILY #90 tabs 10/19/23 12/21/23 atenolol 50 mg tablet 50 mg PO DAILY #90 tabs 10/19/23 12/21/23 zolpidem 10 mg tablet 10 mg PO QHS PRN sleep #15 tabs 12/07/23 12/21/23 Zepbound 2.5 mg/0.5 mL 2.5 mg (0.5 mL) subcut QWEEK #6 mL 12/09/23 12/21/23 subcutaneous pen injector (tirzepatide (weight loss)) hydroxyzine HCl 10 mg tablet 10 mg PO QHS 12/16/23 12/21/23 ondansetron HCl 4 mg tablet 4 mg PO Q8H PRN nausea and 12/16/23 12/21/23 vomiting #10 tabs codeine 10 mg-guaifenesin 100 mg/5 5 ml PO Q6H PRN flu symptoms #120 12/18/23 12/21/23 mL oral liquid mL azithromycin 250 mg tablet 250 mg PO DAILY 4 days #4 tabs 12/21/23 benzonatate 100 mg capsule 100 mg PO TID 12/21/23 12/21/23 Previous Rx's ?Medication ?Instructions ?Recorded valacyclovir 500 mg tablet 500 mg PO BID PRN herpes #14 tabs 12/30/22 sertraline 50 mg tablet 50 mg PO DAILY #90 tabs 10/12/23 amlodipine 5 mg tablet 5 mg PO DAILY #90 tabs 10/19/23 atenolol 50 mg tablet 50 mg PO DAILY #90 tabs 10/19/23 zolpidem 10 mg tablet 10 mg PO QHS PRN sleep #15 tabs 12/07/23 Zepbound 2.5 mg/0.5 mL 2.5 mg (0.5 mL) subcut QWEEK #6 mL 12/09/23 subcutaneous pen injector (tirzepatide (weight loss)) ondansetron HCl 4 mg tablet 4 mg PO Q8H PRN nausea and 12/16/23 vomiting #10 tabs codeine 10 mg-guaifenesin 100 mg/5 5 ml PO Q6H PRN flu symptoms #120 12/18/23 mL oral liquid mL azithromycin 250 mg tablet 250 mg PO DAILY 4 days #4 tabs 12/21/23 Allergies Allergy/AdvReac Type Severity Reaction Status Date / Time Penicillins Allergy Mild HIVES Verified 12/21/23 15:05 General Stated Complaint: GenMedical RUBY: 3 Review of Systems All systems reviewed & are unremarkable except as noted in HPI and below Exam Narrative Exam Narrative: 1.Const: Well-nourished, Well-developed, appearing stated age 2.Eyes: PERRL, no conjunctival injection, and symmetrical lids. 3.ENT: Atraumatic external nose and ears. Moist MM. Neck: Symmetric, trachea midline, No thyromegaly. Patient demonstrates notable effusion on the left, mild purulence, bulging, and redness. 4.CVS: +S1/S2, Peripheral pulses 2+ and equal in all extremities. Brisk capillary refill in all extremities. 5.RESP: Unlabored respiratory effort. Clear to auscultation bilaterally. No wheezes rales or rhonchi 6.GI: Soft, Nontender/Nondistended, No hepatosplenomegaly. No guarding or rebound. 7.MSK: Normocephalic/Atraumatic, Extremities w/o deformity or ttp No cyanosis or clubbing, Normal movement of all extremities 8.Skin: Warm, Dry. No rashes or lesions. 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 Sensation grossly intact, no focal neurologic deficits. 10.Psych: (AAO) x3. Appropriate mood and affect Course Vital Signs Vital signs: Vital Signs Temperature 37.2 C 12/21/23 15:02 Pulse 73 12/21/23 15:02 Respiratory Rate 16 12/21/23 15:02 Blood Pressure 133/84 12/21/23 15:02 Pulse Oximetry 96 12/21/23 15:02 Temperature 37.2 C 12/21/23 15:02 Temperature Source Oral 12/21/23 15:02 Pulse 73 12/21/23 15:02 Respiratory Rate 16 12/21/23 15:02 Respiratory Effort Normal, Non-Labored 12/21/23 15:21 Respiratory Depth Normal 12/21/23 15:21 Respiratory Pattern Normal 12/21/23 15:21 Blood Pressure 133/84 12/21/23 15:02 Blood Pressure Position Sitting 12/21/23 15:02 Pulse Oximetry 96 12/21/23 15:02 Oxygen Delivery Method Room Air 12/21/23 15:02 Oxygen Flow Rate 0 12/21/23 15:02 Pain Level 6 12/21/23 15:02 Medical Decision Making 53-year-old female with past medical history of borderline diabetes, hypertension, previous tobacco abuse quit over a year ago, high cholesterol, who presents today for left ear pain and intermittent fever. Patient states that 1 week ago she developed mild fever sore throat and headache. Sore throat and headache got better, but she continued to have the intermittent fever with congestion runny nose as well as cough COVID flu and RSV testing were negative. 5 days ago she developed left-sided ear pain. 3 to 4 days ago she was started on doxycycline, Claritin, nasal spray. Unfortunately patient states that she has not had any improvement of her left ear pain, runny nose congestion or cough. She does have a penicillin allergy which was significant for notable hives and rash when she was a child. She denies any other complaints at this time. She denies any neck stiffness. She denies any hemoptysis. She denies any vision changes. She denies any drainage from her ears. Physical exam demonstrates notable left-sided otitis media, right tympanic membrane wayne and pearly. Lungs are relatively clear. Chest x-ray was ordered and demonstrates no evidence of acute process. Unfortunately I do not feel that at this stage the doxycycline will be adequate to treat the otitis media. There is certainly no evidence of significant pulmonary component at this stage. We did discuss risk and benefits of treating with a cephalosporin for her ear infection versus azithromycin, we discussed the treatment benefit of the cephalosporin, but also the risk of adverse reaction, we also discussed potential for treatment failure with azithromycin. Patient understands this, and has elected to transition forward with azithromycin. In addition to that we will recommend that she stops taking the Claritin so as to hopefully reduce the risk of potential tympanic membrane rupture. We will give Symbicort inhaler for her persistent cough. Will transition to azithromycin, and recommend continued NSAID therapy. If the patient does not have improvement over the next few days, we will recommend transitioning to a potential cephalosporin understanding the risk. Discussed red flags which to return. I have extensively reviewed the treatment plan and discharge instructions with the patient. I have addressed all patient concerns at this time. The patient was made aware of what symptoms to monitor for that would warrant a return to the emergency department. Discussed the plan with the patient, they demonstrate verbal understanding and agreement with our assessment and plan at this time. The documentation in this chart was dictated using [employer] dictation software. Please excuse any dictation errors. Quality:SDOH Health Related Social Needs: No Data to Display PFSH All Active Problems Cough (Acute) Acute left otitis media (Acute) URI (upper respiratory infection) (Acute) Diabetes mellitus (Chronic) Hyperparathyroidism (Acute) Menopausal and female climacteric states (Acute) Bladder pain syndrome (Acute) LLQ pain (Acute) Normal pelvic sono July 2023 Abdominal mass (Acute) Elevated hematocrit (Acute) Diverticula of colon (Acute) Essential hypertension (Chronic 01/31/13) Hyperlipidemia (Chronic 06/29/12) ELEVATED TRIGLYCERIDES Primary insomnia (Chronic 11/27/14) Rosacea, acne (Chronic 04/30/15) Low back pain (Acute) Obesity (Chronic) Actinic keratosis (Acute) Potassium (K) deficiency (Acute) Serum calcium elevated (Acute) Lumbar radiculopathy (Acute) Medical History Uterine fibroid ~3cm exophytic fibroid on the right side - unlikely to be causing her any issues. Presence of IUD Mirena IUD placed Nov 2018 Due to remove nov 2026 Polycystic ovaries Syncopal episodes Pannus, abdominal Shingles Poorly controlled diabetes mellitus (08/07/14) Pt. no longer has Surgical History History of colonoscopy (~11/2022) H/O section 09/09/98 Family History Mother , 76 Diabetes Essential hypertension Depression Heart disease Hyperlipidemia Father Diabetes Depression Heart disease triple bypass Skin cancer Dementia Hyperlipidemia Hypertension Maternal Grandfather No problems noted. Paternal Grandfather Heart disease Maternal Grandmother Essential hypertension Heart disease Hyperlipidemia Stroke Cancer Paternal Grandmother Colon cancer FAMILY HISTORY Polycystic kidney disease Social History Smoking/Tobacco Use Status: Former Tobacco Use tobacco type: cigarettes Quit Date: 10/15/22 Second Hand Exposure: Yes Smoking risk assessment performed?: Yes Alcohol Intake: current Alcohol Intake frequency: holidays/special occasions only Alcohol type: beer, wine and hard liquor Drug use: Daily Substance use type: former substance user and marijuana Details: THC drops and gummies Adopted: No Caregiver/Support person: No Foster care: No Household members: spouse, children and friend(s) Housing: house Number of Children: 3 Communication Needs: None Education Level: college Details: Bachelors of Social Work Do you need help understanding health information?: Never current occupation: TEACHER Pets and animals: Yes Pets and animals: dog(s) Sexually active: Yes Do you think of yourself as: straight/heterosexual Current gender identity: female What is your relationship status?: How often do you talk on the phone with friends or family?: three or more times per week How often do you get together with friends or relatives?: once per week How often do you attend jewish or yazidi services?: 1-3 times per year Do you belong to any clubs or organized social groups?: no Panel score (0-1 are the most socially isolated patients): 2 Bonnie/Spiritism: Sabianist Special bonnie needs: No Agree to transfusion: Yes Seatbelt use: always Helmet use: Yes Helmet use: always Drive intox or ride w/intox route driver salesperson: No Working smoke detector in home: Yes Carbon monox detector in home: No Firearms in home: Yes Firearms unloaded and locked: Yes Do you feel safe at home: Yes Do you feel safe in your relationship?: Yes Victim of physical abuse: No Victim of emotional abuse: No Victim of sexual abuse: No Female Reproductive History Menstrual control method: none and other ( vasectomy) History History 1 Para 1 Hx # Term Pregnancies Multiple births Hx # Pregnancies Ectopic pregnancies AB induced Hx Number of Living Children AB spontaneous
[2023-12-21] MEDS: Inhaler, Assist Device 1 EACH MC (16:38)
[2023-12-21] MEDS: Azithromycin 250 MG TAB 500 MG PO (16:38)
[2023-12-21] MEDS: Budesonide/Formoterol 160/4.5 6 GM 60 PUFF INH IH (16:38)
[2023-12-21 16:39] VITALS: BP 129/81; BP 129/87; PULSE 70; RESP 16; TEMP 37.2; O2SAT 98
== END 2023-12-21 17:07 | disposition home or self-care (01) ==
PROVIDERS: Emergency Provider Student in an Organized Health Care Education/Training Program; PCP Family Medicine
DX: J06.9 Acute upper respiratory infection, unspecified (principal); H66.92 Otitis media, unspecified, left ear; R05.9 Cough, unspecified; I10 Essential (primary) hypertension; E11.9 Type 2 diabetes mellitus without complications; E78.5 Hyperlipidemia, unspecified; Z87.891 Personal history of nicotine dependence
CPT/HCPCS: 99283; 71045

== ENCOUNTER 2024-03-15 08:14 | Emergency (ER) | payer BC, SELFPAY ==
[2024-03-15] VITALS (19 sets, daily range): BP systolic 108–155; BP diastolic 56–89; PULSE 52–75; RESP 11–20; TEMP 37.1; O2SAT 96–99
--- NOTE | 2024-03-15 08:15 | DI.RAD_ITS ---
Exam(s) XR CHEST 2V PA LATERAL EXAM: XR CHEST 2V PA LATERAL CLINICAL HISTORY: Chest pain. TECHNIQUE: 2D digital imaging was performed. COMPARISON: CR XR PORTABLE CHEST AP from 12/21/2023 FINDINGS: 2 views: Heart size is normal. The mediastinum is not widened. Lungs are clear. No infiltrates nor pleural effusions. IMPRESSION: No acute pulmonary findings. DATA REPOSITORY: RADIATION DOSE DELIVERED:
--- NOTE | 2024-03-15 08:15 | RT.EKG_ITS ---
APPROVED REPORT Exam: Resting ECG Reason for Exam: Chest Pain Patient Location: E HR:67 bpm ECG Measurements Heart Rate 67 AXIS WA 210 P 10 QRSd 88 QRS 65 QT 374 T 39 QTc 396 Conclusion Sinus rhythm, rate 67 No interval abnormalities No STEMI No significant changes from priors
[2024-03-15] MEDS: Ondansetron 4 MG/2 ML VIAL IVP (08:37)
[2024-03-15] MEDS: Aspirin 81 MG CHEW 324 MG CH (08:38)
[2024-03-15 08:42] LABS: Abs Immature Grans 0.04 10^3/uL (0.0-0.06); Absolute Basophil Count 0.08 10^3/uL (0.0-0.2); Absolute Eosinophil Count 0.32 10^3/uL (0.0-0.7); Absolute Lymphocyte Count 2.61 10^3/uL (1.2-3.4); Absolute Monocyte Count 0.66 10^3/uL (0.1-0.8); Absolute Neutrophil Count 5.54 10^3/uL (1.2-6.7); Basophils % 0.9 %; Eosinophils % 3.5 %; HCT 42.6 % (36.0-46.0); HGB 13.5 g/dL (11.2-15.7); Immature Grans % 0.4 %; Lymphocytes % 28.2 %; MCH 26.6 pg (27.0-33.0); MCHC 31.7 % (32.0-36.0); MCV 84 fL (80-95); MPV 10.4 fL (8.0-11.0); Monocytes % 7.1 %; Neutrophils % 59.9 %; Platelet Count 290 10^3/uL (130-400); RBC 5.08 10^6/uL (3.93-5.22); RDW 15.5 % (11.7-14.6); RDW-SD 47.6 fL; WBC 9.25 10^3/uL (4.4-10.8)
--- NOTE | 2024-03-15 08:42 | W.ED.GENAD ---
Discharge Plan Disposition Patient Disposition: Home Condition: Stable Discharge Details Clinical Impression: Chest pain of unknown etiology, Essential hypertension, Hyperlipidemia, Diabetes mellitus Primary Care Provider: Cynthia Prieto ED Provider: Maria Del Carmen Rivers Home Meds and New Rx's Prescriptions: No Action cinnamon bark 500 mg capsule See Rx Instructions PO .COMPLEX Patient Comments: 2 tab PO Daily; Rx Instructions: 2 tab PO Daily; biotin 1 mg capsule 1 mg PO DAILY apple cider vinegar 500 mg tablet 500 mg PO DAILY Mirena 20 mcg/24 hours (5 yrs) 52 mg intrauterine device 1 device IY ONCE Rx Instructions: placed 11/25/2018 valacyclovir 500 mg tablet 500 mg PO BID PRN (Reason: herpes) Qty: 14 3RF tirzepatide (weight loss) 5 mg/0.5 mL pen injector 5 mg subcut QWEEK Qty: 6 4RF amlodipine 5 mg tablet 5 mg PO DAILY Qty: 90 6RF atenolol 50 mg tablet 50 mg PO DAILY Qty: 90 4RF sertraline 50 mg tablet 50 mg PO DAILY Qty: 90 4RF hydroxyzine HCl 10 mg tablet 10 mg PO QHS Qty: 90 2RF zolpidem 10 mg tablet 10 mg PO QHS PRN (Reason: sleep) Qty: 15 0RF Rx Instructions: use sparingly. Try 5mg nightly gabapentin 100 mg capsule 100 mg PO TID Qty: 90 4RF Discharge Instructions Instructions: Chest Pain, Adult ED Additional Instructions: You were seen in the emergency department today for evaluation of chest pain. In our department you do full physical examination performed, had laboratory studies that were reassuring including 2 negative cardiac enzymes, and had a chest x-ray with no abnormalities to explain her symptoms. Unfortunately, we are sometimes unable to determine the exact cause of symptoms in the emergency department, but it is safe for you to go home and follow-up with your primary care provider at your scheduled visit. Please take all your medications as prescribed, and return to the emergency department if you have any concerns. Thank you for allowing us to be part of your care. Stand Alone Forms: Work Release HPI General Mode of arrival: ambulatory. Date/Time Provider Initiated Documentation: 03/15/24 08:21. Limitations to Documentation: no limitations. Information obtained by: patient, family and old records reviewed. HPI Narrative: HPI: This is a 53-year-old female patient with a past medical history significant for diabetes, hypertension, hypertriglyceridemia, who is presenting for evaluation of chest pain and nausea. The patient reports that she first noted the symptoms last night, thought it was indigestion but it did not improve. She reports that she has no personal history of heart problems, states that she has not had any recent fever, chills, shortness of breath or cough. She was traveling in [facility] this weekend, had a full body massage and was walking quite a long distance compared to her typical. She states that the pain has not changed over the last night, she has not tried any medications in the outpatient environment but did take an aspirin just prior to arrival at our facility given her concern for heart problems. The patient reports that she has not noted any specific propagating or palliating factors, pain is described as a heaviness, nonradiating, and currently mild in severity. Exam: Gen: Awake and alert, in no apparent distress HEENT: Non-icteric sclera Neck: Supple Lungs: No apparent respiratory distress, normal respiratory effort. Lung sounds clear and equal bilaterally CV: Appears well perfused, heart with regular rate and rhythm, strong distal pulses Abdomen: Non-distended, soft, nontender to palpation MSK: Moves 4 extremities without apparent limitation in ROM, no unilateral calf swelling or tenderness, no peripheral edema Skin: Visualized skin without rashes, cyanosis. Neuro: Normal Gait, no obvious focal deficits or facial asymmetry. Speaks in full, clear sentences. Psych: Appropriate for situation. MDM: This is a 53-year-old female patient presenting for evaluation of chest heaviness, nausea. My differential includes but is not limited to ACS including STEMI, NSTEMI, unstable angina, certainly considered arrhythmia, pericarditis/myocarditis, aortic pathology. Considered pulmonary abnormalities including pneumonia, bronchitis, pleural effusion, pulmonary edema, reactive airway disease, pneumothorax. The patient is without tachycardia, hypoxia, or a pleuritic component to his pain to significantly increase my concern for pulmonary embolism. No significant GI symptoms or vomiting to suggest Boerhaave's, esophagitis, peptic ulcer disease, pancreatitis. Considered musculoskeletal pathologies including costochondritis, chest wall pain. We will provide the patient with a full dose of aspirin given the ongoing chest pain, obtain an EKG and a chest x-ray, as well as laboratory studies to include CBC, CMP, magnesium, troponin, and lipase. ED Course: I reviewed the patient's EKG, which shows a normal sinus rhythm without evidence of ischemia, interval abnormality, or ectopy. Chest x-ray was independently interpreted by myself and shows no evidence of abnormalities which might explain the patient's symptoms. I independently interpreted the laboratory studies, which show no significant leukocytosis, anemia, or thrombocytopenia. The chemistry panel is without evidence of electrolyte abnormality, kidney dysfunction, or liver injury. Lipase is low, troponin negative x 2 checks. On reassessment, the patient's chest pain has improved, and I have a low concern for emergent etiology of her chest pain that would require further workup and management in this ED. At this time, the patient has had a full medical evaluation and is safe for discharge to home. They are hemodynamically stable, ambulatory, and tolerating PO. They are understanding of the follow-up plan and return precautions. They left our facility without incident. Maria Del Carmen Rivers MD Related Data Home Medications ?Medication ?Instructions ?Recorded ?Confirmed cinnamon bark 500 mg capsule See Rx Instructions PO .COMPLEX 11/24/17 03/15/24 apple cider vinegar 500 mg tablet 500 mg PO DAILY 05/10/18 03/15/24 biotin 1 mg capsule 1 mg PO DAILY 05/10/18 03/15/24 levonorgestrel 21 mcg/24 hr (up to 1 device intrauterine ONCE 11/25/18 03/15/24 8 years) 52 mg intrauterine device (Mirena) sertraline 50 mg tablet 50 mg PO DAILY #90 tabs 10/12/23 03/15/24 amlodipine 5 mg tablet 5 mg PO DAILY #90 tabs 10/19/23 03/15/24 atenolol 50 mg tablet 50 mg PO DAILY #90 tabs 10/19/23 03/15/24 hydroxyzine HCl 10 mg tablet 10 mg PO QHS #90 tabs 01/12/24 03/15/24 tirzepatide (weight loss) 5 mg/0.5 5 mg (0.5 mL) subcut QWEEK #6 mL 02/09/24 03/15/24 mL subcutaneous pen injector valacyclovir 500 mg tablet 500 mg PO BID PRN herpes #14 tabs 02/09/24 03/15/24 gabapentin 100 mg capsule 100 mg PO TID #90 caps 02/25/24 03/15/24 zolpidem 10 mg tablet 10 mg PO QHS PRN sleep #15 tabs 02/25/24 03/15/24 Previous Rx's ?Medication ?Instructions ?Recorded sertraline 50 mg tablet 50 mg PO DAILY #90 tabs 10/12/23 amlodipine 5 mg tablet 5 mg PO DAILY #90 tabs 10/19/23 atenolol 50 mg tablet 50 mg PO DAILY #90 tabs 10/19/23 hydroxyzine HCl 10 mg tablet 10 mg PO QHS #90 tabs 01/12/24 tirzepatide (weight loss) 5 mg/0.5 5 mg (0.5 mL) subcut QWEEK #6 mL 02/09/24 mL subcutaneous pen injector valacyclovir 500 mg tablet 500 mg PO BID PRN herpes #14 tabs 02/09/24 gabapentin 100 mg capsule 100 mg PO TID #90 caps 02/25/24 zolpidem 10 mg tablet 10 mg PO QHS PRN sleep #15 tabs 02/25/24 Allergies Allergy/AdvReac Type Severity Reaction Status Date / Time Penicillins Allergy Mild HIVES Verified 03/15/24 08:19 General Stated Complaint: Chest Pain RUBY: 3 Course Vital Signs Vital signs: Vital Signs Temperature 37.1 C 03/15/24 08:18 Pulse 73 03/15/24 08:18 Respiratory Rate 18 03/15/24 08:18 Blood Pressure 155/80 H 03/15/24 08:18 Pulse Oximetry 98 03/15/24 08:18 Temperature 37.1 C 03/15/24 08:18 Pulse 68 03/15/24 08:24 Pulse 73 03/15/24 08:30 Respiratory Rate 18 03/15/24 08:30 Respiratory Effort Normal 03/15/24 08:41 Blood Pressure 131/83 03/15/24 08:24 Blood Pressure Mean 93 03/15/24 08:24 Pulse Oximetry 98 03/15/24 08:24 Pain Level 3 03/15/24 08:18 Medical Decision Making Quality:SDOH Health Related Social Needs: No Data to Display PFSH All Active Problems (Updated 03/15/24 @ 10:29 by Maria Del Carmen Rivers MD) Chest pain of unknown etiology (Acute) Bilateral carpal tunnel syndrome (Acute) Carpal tunnel syndrome (Acute) Fullness in left ear (Acute) Ear pain (Acute) Diabetes mellitus (Chronic) Hyperparathyroidism (Acute) Menopausal and female climacteric states (Acute) Bladder pain syndrome (Acute) LLQ pain (Acute) Normal pelvic sono July 2023 Abdominal mass (Acute) Elevated hematocrit (Acute) Diverticula of colon (Acute) Essential hypertension (Chronic 01/31/13) Hyperlipidemia (Chronic 06/29/12) ELEVATED TRIGLYCERIDES Primary insomnia (Chronic 11/27/14) Rosacea, acne (Chronic 04/30/15) Low back pain (Acute) Obesity (Chronic) Actinic keratosis (Acute) Potassium (K) deficiency (Acute) Serum calcium elevated (Acute) Lumbar radiculopathy (Acute) Medical History Uterine fibroid ~3cm exophytic fibroid on the right side - unlikely to be causing her any issues. Presence of IUD Mirena IUD placed Nov 2018 Due to remove nov 2026 Syncopal episodes Pannus, abdominal Shingles Poorly controlled diabetes mellitus (08/07/14) Pt. no longer has Polycystic ovaries Surgical History History of colonoscopy (~11/2022) H/O section 09/09/98 Family History Mother , 76 Diabetes Essential hypertension Depression Heart disease Hyperlipidemia Father Diabetes Depression Heart disease triple bypass Skin cancer Dementia Hyperlipidemia Hypertension Maternal Grandfather No problems noted. Paternal Grandfather Heart disease Maternal Grandmother Essential hypertension Heart disease Hyperlipidemia Stroke Cancer Paternal Grandmother Colon cancer FAMILY HISTORY Polycystic kidney disease Social History Smoking/Tobacco Use Status: Former Tobacco Use tobacco type: cigarettes Quit Date: 10/15/22 Second Hand Exposure: Yes Smoking risk assessment performed?: Yes Alcohol Intake: current Alcohol Intake frequency: holidays/special occasions only Alcohol type: beer, wine and hard liquor Drug use: Daily Substance use type: former substance user and marijuana Details: THC drops and gummies Adopted: No Caregiver/Support person: No Foster care: No Household members: spouse, children and friend(s) Housing: house Number of Children: 3 Communication Needs: None Education Level: college Details: Bachelors of Social Work Do you need help understanding health information?: Never current occupation: TEACHER Pets and animals: Yes Pets and animals: dog(s) Sexually active: Yes Do you think of yourself as: straight/heterosexual Current gender identity: female What is your relationship status?: How often do you talk on the phone with friends or family?: three or more times per week How often do you get together with friends or relatives?: once per week How often do you attend jew or buddhist services?: 1-3 times per year Do you belong to any clubs or organized social groups?: no Panel score (0-1 are the most socially isolated patients): 2 Bonnie/Evangelical: Voodoo Special bonnie needs: No Agree to transfusion: Yes Seatbelt use: always Helmet use: Yes Helmet use: always Drive intox or ride w/intox retail delivery driver: No Working smoke detector in home: Yes Carbon monox detector in home: No Firearms in home: Yes Firearms unloaded and locked: Yes Do you feel safe at home: Yes Do you feel safe in your relationship?: Yes Victim of physical abuse: No Victim of emotional abuse: No Victim of sexual abuse: No Female Reproductive History Menstrual control method: none and other ( vasectomy) History History 1 Para 1 Hx # Term Pregnancies Multiple births Hx # Pregnancies Ectopic pregnancies AB induced Hx Number of Living Children AB spontaneous
[2024-03-15 09:01] LABS: ALT 38 U/L (14-59); AST 19 U/L (15-37); Albumin 3.4 g/dL (3.4-5.0); Alkaline Phosphatase 72 U/L (46-116); Anion Gap 6.3 mmol/L (3-11); BUN 9 mg/dL (7-18); Bilirubin, Total 0.36 mg/dL (0.2-1.0); CO2 25.7 mmol/L (21.0-32.0); CREATININE 0.6 mg/dL (0.55-1.02); Calcium 8.8 mg/dL (8.5-10.1); Chloride 108 mmol/L (98-107); Estimated GFR 107.26 (mL/min/1.73m2); Glucose 151 mg/dL (74-106); Lipase 25 U/L (<78); Magnesium 1.8 mg/dL (1.8-2.4); Potassium 4.2 mmol/L (3.5-5.1); Sodium 140 mmol/L (136-145); Total Protein 6.7 g/dL (6.4-8.2); Troponin I 4 ng/L (<or=51)
[2024-03-15 10:20] LABS: Troponin I < 4 ng/L (<or=51)
== END 2024-03-15 10:47 | disposition home or self-care (01) ==
PROVIDERS: Emergency Provider Emergency Medicine; PCP Family Medicine
DX: R07.9 Chest pain, unspecified (principal); I10 Essential (primary) hypertension; E78.5 Hyperlipidemia, unspecified; E11.9 Type 2 diabetes mellitus without complications; F17.210 Nicotine dependence, cigarettes, uncomplicated; Z79.899 Other long term (current) drug therapy
CPT/HCPCS: 80053; 83690; 93005; 96374; 99285; 71046; 83735; 84484; 85025; 93010; 99284; J2405

== ENCOUNTER 2024-03-22 12:42 | Outpatient (REF) | payer BC, SELFPAY ==
--- NOTE | 2024-03-22 11:15 | PAPFT_PTH ---
PATIENT: Josefina Waite LOC: [facility] U#:[id number] AGE/SX: 53/F ROOM: RE03/22/[address]: Cynthia Prieto MD, DC : 1970 BED: DIS: 03/22/2024 SPEC #: [id number] RECD: 03/22/24 12:52 STATUS: ALEX RENayely #: [id number] JCARLOS: 03/22/24 11:[address]: Cynthia Prieto [facility] Cytology RECD BY: Tiffanie Robles Tissues: 1 - CX/ENDOCX FOR PAP SMEARS Procedures: PAP THIN PREP/UVM Screening HPV DNA PROBE Comments: [id number] (HPV 16 & 18/45)
[2024-03-22 13:12] LABS: Bilirubin Negative (Negative); Blood Negative (Negative); Clarity Sl Cloudy (Clear); Glucose Negative (Negative); Ketones Negative (Negative); Leukocyte Esterase Negative (Negative); Nitrite Negative (Negative); Urobilinogen 0.2 mg/dL (Up to 0.2); pH 5.5 (5-8)
[2024-03-22 13:17] LABS: Microalb ug/mg Crea 9.6 ug/mg Cr
== END 2024-03-22 12:43 | disposition home or self-care (01) ==
LOC: LBN 12:42
PROVIDERS: PCP Family Medicine; Visit Provider Family Medicine
DX: E11.9 Type 2 diabetes mellitus without complications (principal); G62.9 Polyneuropathy, unspecified; R30.0 Dysuria; Z11.51 Encounter for screening for human papillomavirus (HPV); Z01.419 Encounter for gynecological examination (general) (routine) without abnormal findings
CPT/HCPCS: 88142; 81003; 82043; 82570; 87624

== ENCOUNTER 2024-04-29 00:58 | Outpatient (CLI) | payer BC, SELFPAY ==
[2024-04-29 13:50] LABS: Cholesterol 250 mg/dL (<200); HDL Cholesterol 45 mg/dL (>or=50); TSH (W/Ref FT4) 1.77 uIU/mL (0.36-3.74); Triglyceride 514 mg/dL (<150); Vitamin B12 846 pg/mL (193-986)
[2024-04-29 14:01] LABS: LDL CHOLESTEROL 145 mg/dL (<100)
== END 2024-04-29 00:59 | disposition home or self-care (01) ==
LOC: LBO 00:58
PROVIDERS: PCP Family Medicine; Visit Provider Family Medicine
DX: I10 Essential (primary) hypertension (principal); Z00.00 Encounter for general adult medical examination without abnormal findings; G62.9 Polyneuropathy, unspecified; E03.9 Hypothyroidism, unspecified
CPT/HCPCS: 36415; 80061; 83721; 82607; 84443

== ENCOUNTER 2024-07-12 11:54 | Day surgery (SDC) | payer BC, SELFPAY ==
--- NOTE | 2024-07-12 10:10 | W.PM.DSUDISC ---
Date of service: 07/12/24 Discharge Plan Disposition Patient Disposition: Home Condition: Good Discharge Details Reason For Visit: Right carpal tunnel syndrome Attending Provider: Gomez Paris Primary Care Provider: Cynthia Prieto Home Meds and New Rx's Prescriptions: New hydrocodone-acetaminophen 5-325 mg tablet 1 tab PO Q6H PRN (Reason: severe pain) Qty: 3 0RF Rx Instructions: Take one tablet up to every 6 hours as needed for severe postoperative pain Continued cinnamon bark 500 mg capsule See Rx Instructions PO .COMPLEX Patient Comments: 2 tab PO Daily; Rx Instructions: 2 tab PO Daily; doxycycline hyclate 100 mg tablet 100 mg PO BID Qty: 42 0RF biotin 1 mg capsule 1 mg PO DAILY apple cider vinegar 500 mg tablet 500 mg PO DAILY Mirena 20 mcg/24 hours (5 yrs) 52 mg intrauterine device 1 device IY ONCE Rx Instructions: placed 11/25/2018 valacyclovir 500 mg tablet 500 mg PO BID PRN (Reason: herpes) Qty: 14 3RF amlodipine 5 mg tablet 5 mg PO DAILY Qty: 90 6RF atenolol 50 mg tablet 50 mg PO DAILY Qty: 90 4RF sertraline 50 mg tablet 50 mg PO DAILY Qty: 90 4RF hydroxyzine HCl 10 mg tablet 10 mg PO QHS Qty: 90 2RF gabapentin 100 mg capsule 100 mg PO TID Qty: 90 4RF tirzepatide (weight loss) 7.5 mg/0.5 mL pen injector 7.5 mg subcut QWEEK Qty: 6 4RF zolpidem 10 mg tablet 10 mg PO QHS PRN (Reason: sleep) Qty: 30 0RF Rx Instructions: use sparingly. Try 5mg nightly Discharge Instructions Stand Alone Forms: [place] Sterling Tunnel Release Activity:: Elevate Remove Dressings/Wound Care:: 48 hours Shower/Bathe:: 48 hours Diet:: As Tolerated Discharge Orders Discharge Orders: Discharge Order (Routine); Ordered 07/12/24 Ordered By: Cherri Sheriff
[2024-07-12 12:18] VITALS: BP 137/93; PULSE 73; RESP 16; TEMP 36.8; O2SAT 98
[2024-07-12] MEDS: Cephalexin 500 MG CAP 1000 MG PO (12:36)
[2024-07-12] MEDS: Lidocaine 1% Pres-Free W/EPI 1/200,000 10 ML VIAL (13:58)
[2024-07-12] MEDS: Sodium Bicarbonate 50 MEQ/50 ML VIAL (13:59)
[2024-07-12 14:03] VITALS: BP 129/87; PULSE 71; RESP 16; TEMP 36.9; O2SAT 98
--- NOTE | 2024-07-12 14:03 | W.PM.OP ---
Operative Note Operative Note PRE-OP DIAGNOSIS: Right Carpal Tunnel Syndrome POST-OP DIAGNOSIS: same PROCEDURE: Right Endoscopic Carpal Tunnel Release SURGEON: Gomez Paris ANESTHESIA TYPE: Local By Surgeon Refer to Anesthesia Record ESTIMATED BLOOD LOSS: 0 PATHOLOGY: none sent TOURNIQUET TIME: 6 COMPLICATIONS: None Patient was transported to: same day Patient's condition: stable Indications: I have seen Josefina in clinic for symptoms of carpal tunnel syndrome. The numbness, tingling, and pain limited function. Clinical exam findings with nerve conduction tests confirmed the diagnosis of carpal tunnel syndrome. Nonoperative measures such as bracing, time, activity modifications had been tried but disability and pain persisted. I discussed carpal tunnel release with the patient. I reviewed the risks of the procedure to include, but not limited to, bleeding, infection, pain, stiffness, incomplete release, damage to nerves or vessels, persistent numbness, recurrence. Despite these risks, the patient elected to proceed. Findings: There was tightened carpal tunnel. This was dilated and released successfully with the endoscopic with increased space within the tunnel. The antebrachial fascia was released proximally freeing the median nerve at the wrist. Procedure Description: Josefina was greeted in the preoperative holding area where the correct side was identified and marked. The consent was reviewed with the patient and signed. The history and physical was updated. All questions were answered. Prophylactic antibiotics in the form of Cephalexin were administered. She was taken back to the operating room. The patient was placed into the supine position on the operating room table with the right arm on an arm board. A nonsterile tourniquet was placed high onto the arm. All bony prominences were well padded. The right arm was then prepped with Chloraprep and draped in a standard fashion with stockinette and extremity drape. A timeout to confirm correct identity, side and site, procedure, allergies, anesthesia, and medical concerns was performed. The surgical site was marked in the volar wrist creases in line with the radial border of the fourth ray. This area was anesthetized with approximately 6cc of 1% Lidocaine with epinephrine. Once anesthetic had set up, the limb was then exsanguinated with an Esmarch. The skin was incised with a 15 blade, approximately 1cm. The skin only was cut and the deeper tissue was dissected bluntly with a tenotomy scissor, avoiding passing nerve and venous structures. The fascia was penetrated and opened bluntly. A two-prong skin hook was placed under this proximal fascial edge. A series of hamate finders were used to identify and dilate the carpal tunnel. Synovial elevator was used to free synovial attachments to the underside of the transverse carpal ligament. My thumb was kept in the palm to anna the distal extent of the carpal tunnel and correctly position the hand. The [employer] endoscope was inserted without difficulty and without resistance. Excellent visualization showed horizontally running fibers of the transverse carpal ligament (TCL). The distal extent of the TCL was visualized and the end of the scope palpated with the thumb. The blade was elevated and withdrawn from distal to proximal. The TCL was split into two flaps. The endoscope was reinserted to confirm complete release and any remnant ligament was incised. The scope was withdrawn and the proximal aspect of the carpal tunnel was grossly inspected and appeared release with the median nerve visible. The antebrachial fascia at the level of the wrist was then freed from the overlying skin and then the underlying median nerve with blunt dissection. This was transected longitudinally for about 3cm proximal to the wrist incision. The wound was then irrigated with easy flow of irrigant distally and proximally. The incision was closed with a single 4-0 Nylon suture. The wound was dressed with Xeroform, Gauze, Kerlix and Shayne. The tourniquet was deflated with the initial dressing and held with some pressure. Blood flow returned easily to all digits with capillary refill less than 2 seconds. The patient tolerated the procedure well and was returned to the Same Day Surgery area in a stable condition suffering no known complication. Date of Procedure: 07/12/24
== END 2024-07-12 14:27 | disposition home or self-care (01) ==
LOC: SUR 11:55
PROVIDERS: PCP Family Medicine; Visit Provider Student in an Organized Health Care Education/Training Program
PROC: 01N54ZZ Release Median Nerve, Percutaneous Endoscopic Approach (ICD-10-PCS; CPT 29848; principal; 2024-07-12 13:15)
DX: G56.01 Carpal tunnel syndrome, right upper limb (principal)
CPT/HCPCS: 29848; J2004

== ENCOUNTER 2024-07-19 12:13 | Day surgery (SDC) | payer BC, SELFPAY ==
--- NOTE | 2024-07-19 07:28 | W.PM.DSUDISC ---
Date of service: 07/19/24 Discharge Plan Disposition Patient Disposition: Home Condition: Good Discharge Details Reason For Visit: Left carpal tunnel syndrome Attending Provider: Gomez Paris Primary Care Provider: Cynthia Prieto Home Meds and New Rx's Prescriptions: New hydrocodone-acetaminophen 5-325 mg tablet 1 tab PO Q6H PRN (Reason: severe pain) Qty: 3 0RF Rx Instructions: Take one tablet up to every 6 hours as needed for severe postoperative pain Continued cinnamon bark 500 mg capsule See Rx Instructions PO .COMPLEX Patient Comments: 2 tab PO Daily; Rx Instructions: 2 tab PO Daily; biotin 1 mg capsule 1 mg PO DAILY apple cider vinegar 500 mg tablet 500 mg PO DAILY Mirena 20 mcg/24 hours (5 yrs) 52 mg intrauterine device 1 device IY ONCE Rx Instructions: placed 11/25/2018 valacyclovir 500 mg tablet 500 mg PO BID PRN (Reason: herpes) Qty: 14 3RF amlodipine 5 mg tablet 5 mg PO DAILY Qty: 90 6RF atenolol 50 mg tablet 50 mg PO DAILY Qty: 90 4RF doxycycline hyclate 100 mg tablet 100 mg PO BID Qty: 60 3RF hydroxyzine HCl 10 mg tablet 10 mg PO QHS Qty: 90 2RF gabapentin 100 mg capsule 100 mg PO TID Qty: 90 4RF tirzepatide (weight loss) 7.5 mg/0.5 mL pen injector 7.5 mg subcut QWEEK Qty: 6 4RF zolpidem 10 mg tablet 10 mg PO QHS PRN (Reason: sleep) Qty: 30 0RF Rx Instructions: use sparingly. Try 5mg nightly sertraline 50 mg tablet 50 mg PO HS Discontinued hydrocodone-acetaminophen 5-325 mg tablet 1 tab PO Q6H PRN (Reason: severe pain) Qty: 3 0RF Rx Instructions: Take one tablet up to every 6 hours as needed for severe postoperative pain Discharge Instructions Stand Alone Forms: [place] Sterling Tunnel Release Activity:: Elevate Remove Dressings/Wound Care:: 48 hours Shower/Bathe:: 48 hours Diet:: As Tolerated Discharge Orders Discharge Orders: Discharge Order (Routine); Ordered 07/19/24 Ordered By: Cherri Sheriff
[2024-07-19 12:29] VITALS: BP 129/77; PULSE 73; RESP 18; TEMP 36.4; O2SAT 98
[2024-07-19] MEDS: Cephalexin 500 MG CAP 1000 MG PO (12:44)
[2024-07-19] MEDS: Sodium Bicarbonate 50 MEQ/50 ML VIAL (13:20)
[2024-07-19] MEDS: Lidocaine 1% Multi-Dose W/EPI 1/100,000 50 ML VIAL (13:25)
[2024-07-19 13:29] VITALS: BP 134/65; PULSE 77; RESP 16; TEMP 36.9; O2SAT 99
--- NOTE | 2024-07-19 13:48 | W.PM.OP ---
Operative Note Operative Note PRE-OP DIAGNOSIS: Left Carpal Tunnel Syndrome POST-OP DIAGNOSIS: same PROCEDURE: Left Endoscopic Carpal Tunnel Release SURGEON: Gomez Paris ANESTHESIA TYPE: Local By Surgeon Refer to Anesthesia Record ESTIMATED BLOOD LOSS: 0 PATHOLOGY: none sent TOURNIQUET TIME: 0 COMPLICATIONS: None Patient was transported to: same day Patient's condition: stable Indications: I have seen Josefina in clinic for symptoms of carpal tunnel syndrome. The numbness, tingling, and pain limited function. Clinical exam findings with nerve conduction tests confirmed the diagnosis of carpal tunnel syndrome. Nonoperative measures such as bracing, time, activity modifications had been tried but disability and pain persisted. I discussed carpal tunnel release with the patient. She had the contralateral side released last week and has some tingling at the tip of the middle finger and ring finger although does report improvement with her preoperative symptoms. Once again, I reviewed the risks of the procedure to include, but not limited to, bleeding, infection, pain, stiffness, incomplete release, damage to nerves or vessels, persistent numbness, recurrence. Despite these risks, the patient elected to proceed. Findings: There was tightened carpal tunnel. This was dilated and released successfully with the endoscopic with increased space within the tunnel. The antebrachial fascia was released proximally freeing the median nerve at the wrist. Procedure Description: Josefina was greeted in the preoperative holding area where the correct side was identified and marked. The consent was reviewed with the patient and signed. The history and physical was updated. All questions were answered. She was taken back to the operating room. The patient was placed into the supine position on the operating room table with the left arm on an arm board. A nonsterile tourniquet was placed high onto the arm. All bony prominences were well padded. Prophylactic antibiotics in the form of Cefazolin were administered. The left arm was then prepped with Chloraprep and draped in a standard fashion with stockinette and extremity drape. A timeout to confirm correct identity, side and site, procedure, allergies, anesthesia, and medical concerns was performed. The surgical site was marked in the volar wrist creases in line with the radial border of the fourth ray. This area was anesthetized with approximately 6cc of 1% Lidocaine. The limb was then exsanguinated with an Esmarch. The skin was incised with a 15 blade, approximately 1cm. The skin only was cut and the deeper tissue was dissected bluntly with a tenotomy scissor, avoiding passing nerve and venous structures. The fascia was penetrated and opened bluntly. A two-prong skin hook was placed under this proximal fascial edge. A series of hamate finders were used to identify and dilate the carpal tunnel. Synovial elevator was used to free synovial attachments to the underside of the transverse carpal ligament. My thumb was kept in the palm to anna the distal extent of the carpal tunnel and correctly position the hand. The Microaire endoscope was inserted without difficulty and without resistance. Excellent visualization showed horizontally running fibers of the transverse carpal ligament (TCL). The distal extent of the TCL was visualized and the end of the scope palpated with the thumb. The blade was elevated and withdrawn from distal to proximal. The TCL was split into two flaps. The endoscope was reinserted to confirm complete release and any remnant ligament was incised. The scope was withdrawn and the proximal aspect of the carpal tunnel was grossly inspected and appeared release with the median nerve visible. The antebrachial fascia at the level of the wrist was then freed from the overlying skin and then the underlying median nerve with blunt dissection. This was transected longitudinally for about 3cm proximal to the wrist incision. The wound was then irrigated with easy flow of irrigant distally and proximally. The incision was closed with a single 4-0 Nylon suture. The wound was dressed with Xeroform, Gauze, Kerlix and Shayne. The tourniquet was deflated with the initial dressing and held with some pressure. Blood flow returned easily to all digits with capillary refill less than 2 seconds. The patient tolerated the procedure well and was returned to the Same Day Surgery area in a stable condition suffering no known complication. Date of Procedure: 07/19/24
== END 2024-07-19 13:47 | disposition home or self-care (01) ==
LOC: SUR 12:13
PROVIDERS: PCP Family Medicine; Visit Provider Student in an Organized Health Care Education/Training Program
PROC: 01N54ZZ Release Median Nerve, Percutaneous Endoscopic Approach (ICD-10-PCS; CPT 29848; principal; 2024-07-19 15:15)
DX: G56.02 Carpal tunnel syndrome, left upper limb (principal)
CPT/HCPCS: 29848; J2004

== ENCOUNTER 2024-12-12 08:08 | Emergency (ER) | payer BC, SELFPAY ==
[2024-12-12] VITALS (20 sets, daily range): BP systolic 107–128; BP diastolic 67–78; PULSE 57–77; RESP 12–21; TEMP 37.2; O2SAT 96–99
--- NOTE | 2024-12-12 08:00 | RT.EKG_ITS ---
APPROVED REPORT Exam: Resting ECG Reason for Exam: dizzy Patient Location: E HR:63 bpm ECG Measurements Heart Rate 63 AXIS OR 212 P 9 QRSd 91 QRS 55 QT 381 T 29 QTc 391 Conclusion Sinus rhythm...normal P axis, V-rate 60- 99 Prolonged OR interval...OR >210, V-rate 50- 90 Rhythm No STEMI
--- NOTE | 2024-12-12 08:30 | DI.RAD_ITS ---
Exam(s) XR CHEST 2V PA LATERAL EXAM: XR CHEST 2V PA LATERAL CLINICAL HISTORY: dizziness TECHNIQUE: 2D digital imaging was performed of the chest. Two images were obtained. PA and lateral views were obtained. COMPARISON: CR XR PORTABLE CHEST AP from 12/21/2023 CR XR CHEST 2V PA LATERAL from 03/15/2024 FINDINGS: MEDIASTINUM: Normal. HEART: Normal. PULMONARY VASCULATURE: Normal. LUNGS: Clear. PLEURAL SPACE: No pleural effusion or pneumothorax. BONE:Within normal limits for the patient's age. OTHER FINDINGS:Normal. IMPRESSION: No acute pulmonary findings. DATA REPOSITORY: RADIATION DOSE DELIVERED:
--- NOTE | 2024-12-12 08:39 | W.ED.GENAD ---
Discharge Plan Disposition Patient Disposition: Home Condition: Good Discharge Details Clinical Impression: Corneal abrasion, right, Head congestion, Episodic lightheadedness Primary Care Provider: Cynthia Prieto ED Provider: Bertha Zuniga Home Meds and New Rx's Prescriptions: New tobramycin 0.3 % drops 1 drp ophthalmic (eye) QID 3 Days Qty: 5 0RF Rx Instructions: Instill 1 drop in your right eye 4 times a day for 3 days No Action cinnamon bark 500 mg capsule See Rx Instructions PO .COMPLEX Patient Comments: 2 tab PO Daily; Rx Instructions: 2 tab PO Daily; zolpidem 10 mg tablet 5 mg PO QHS PRN (Reason: sleep) Rx Instructions: use sparingly. Try 5mg nightly biotin 1 mg capsule 1 mg PO DAILY apple cider vinegar 500 mg tablet 500 mg PO DAILY Mirena 20 mcg/24 hours (5 yrs) 52 mg intrauterine device 1 device IY ONCE Rx Instructions: placed 11/25/2018 hydroxyzine HCl 10 mg tablet 10 mg PO QHS Qty: 90 2RF gabapentin 100 mg capsule 100 mg PO TID Qty: 90 4RF amlodipine 5 mg tablet 5 mg PO DAILY Qty: 90 6RF atenolol 50 mg tablet 50 mg PO DAILY Qty: 90 4RF doxycycline hyclate 100 mg tablet 100 mg PO BID Qty: 60 3RF sertraline 50 mg tablet 50 mg PO HS Qty: 90 3RF Patient Comments: taking 25mg QHS until gone then DC'ing valacyclovir 500 mg tablet 500 mg PO BID PRN (Reason: herpes) Qty: 14 3RF tirzepatide (weight loss) 2.5 mg/0.5 mL pen injector 2.5 mg subcut QWEEK Qty: 6 4RF Discharge Instructions Instructions: Corneal Abrasion ED Additional Instructions: Please call your primary care provider's office first thing in the morning to schedule a follow-up appointment. Your workup today was reassuring. A corneal abrasion was found. Please use 1 drop in your right eye 4 times a day for the next 3 days. Avoid wearing contacts or rubbing at your eye. Wash your hands before touching your eyes. Your symptoms may be related to congestion in your sinuses. I recommend the use Flonase 2 sprays in each nostril daily. A humidifier at bedside may also be helpful. Stay well-hydrated, drink plenty of fluid throughout the day. Please return to emergency care if you develop new chest pains, episodes of passing out/dizziness, feel unsteady on your feet, have vision changes, or if you are very worried and need to be rechecked again immediately Referrals: Cynthia Prieto [place], [place] [Primary Care Provider, Medicine] HPI General Date/Time Provider Initiated Documentation: 12/12/24 08:15. HPI Narrative: Josefina is a 54 year old female who presents to the emergency department for evaluation of lightheadedness accompanied by dry mouth, and increased urine output. Symptoms started this morning. 54-year-old female with diabetes presenting with headache and dry mouth. Accompanied by . Woke up with inability to open right eye, resolved by manually lifting eyebrow. No crusting or cold symptoms. Two weeks ago, accidentally used hydrogen peroxide as contact lens solution, causing burning sensation. Newspaper Delivery Driver consulted, no issues since. Mild burning sensation upon inserting contact lenses this morning, resolved. Vision unaffected. Experienced head spinning/fuzzy headed feeling while getting ready for work today between [id number] hours, not attributed to panic attack. Metallic taste and persistent dry mouth. [place] lightheaded, avoided driving for safety. Took low-dose aspirin and rested, continued dizziness even while lying down. This feeling of lightheadedness was accompanied by fullness in ears of tinnitus (now resolved), increased heart rate (also now resolved). Last night she reports that she woke up approximately 6 times to urinate, says this is unusual for her; denies associated dysuria or foul-smelling urine. Has had some on and off nausea and occasional mild headaches over the last week as well. Denies recent fever/chills, congestion, sore throat, postnasal drip, cough, chest pain, vomiting, change in p.o. intake, abdominal pain, change in bowel function, rashes, recent ill contacts, numbness in extremities or extremity weakness, recent trauma. She reports that she is feeling significantly better now, only has slight lightheadedness at the moment. PMH significant for: HTN, HLD, obesity, anxiety. Has an IUD in place, does not menstruate. Has history of diabetes, managed with diet, no longer taking medication. Last A1c was 5.7. Related Data Home Medications ?Medication ?Instructions ?Recorded ?Confirmed cinnamon bark 500 mg capsule See Rx Instructions PO .COMPLEX 11/24/17 12/12/24 apple cider vinegar 500 mg tablet 500 mg PO DAILY 05/10/18 12/12/24 biotin 1 mg capsule 1 mg PO DAILY 05/10/18 12/12/24 levonorgestrel (Mirena) 1 device intrauterine ONCE 11/25/18 12/12/24 hydroxyzine HCl 10 mg tablet 10 mg PO QHS #90 tabs 01/12/24 12/12/24 gabapentin 100 mg capsule 100 mg PO TID #90 caps 02/25/24 12/12/24 amlodipine 5 mg tablet 5 mg PO DAILY #90 tabs 09/07/24 12/12/24 atenolol 50 mg tablet 50 mg PO DAILY #90 tabs 09/07/24 12/12/24 doxycycline hyclate 100 mg tablet 100 mg PO BID #60 tabs 09/07/24 12/12/24 sertraline 50 mg tablet 50 mg PO HS #90 tabs 09/07/24 12/12/24 valacyclovir 500 mg tablet 500 mg PO BID PRN herpes #14 tabs 09/15/24 12/12/24 tirzepatide (weight loss) 2.5 2.5 mg (0.5 mL) subcut QWEEK #6 mL 10/04/24 12/12/24 mg/0.5 mL subcutaneous pen injector zolpidem 10 mg tablet 5 mg PO QHS PRN sleep 12/08/24 12/12/24 tobramycin 0.3 % eye drops 1 drp ophthalmic (eye) QID 3 days 12/12/24 #5 mL Previous Rx's ?Medication ?Instructions ?Recorded hydroxyzine HCl 10 mg tablet 10 mg PO QHS #90 tabs 01/12/24 gabapentin 100 mg capsule 100 mg PO TID #90 caps 02/25/24 amlodipine 5 mg tablet 5 mg PO DAILY #90 tabs 09/07/24 atenolol 50 mg tablet 50 mg PO DAILY #90 tabs 09/07/24 doxycycline hyclate 100 mg tablet 100 mg PO BID #60 tabs 09/07/24 sertraline 50 mg tablet 50 mg PO HS #90 tabs 09/07/24 valacyclovir 500 mg tablet 500 mg PO BID PRN herpes #14 tabs 09/15/24 tirzepatide (weight loss) 2.5 2.5 mg (0.5 mL) subcut QWEEK #6 mL 10/04/24 mg/0.5 mL subcutaneous pen injector tobramycin 0.3 % eye drops 1 drp ophthalmic (eye) QID 3 days 12/12/24 #5 mL Allergies Allergy/AdvReac Type Severity Reaction Status Date / Time Penicillins Allergy Mild HIVES Verified 12/12/24 08:19 General Stated Complaint: Dizzy/Sync RUBY: 3 Exam Narrative Exam Narrative: General Appearance: Normal. Alert and oriented, no acute distress Vital signs: Within normal limits. HEENT: TMs pearly wayne, translucent. No pain manipulation of pinna. Moist mucous membranes. No oropharyngeal erythema/exudate. PERRL, EOMs intact. Cardiovascular; regular rate and rhythm, normal heart sounds. No obvious JVD. Respiratory: Work of breathing, lung sounds clear bilaterally GI; abdomen soft, nondistended, nontender to palpation Skin: Warm and dry, no rash. Neurological: No change in dizziness with sitting up. 5/5 muscle strength upper and lower extremities, sensation grossly intact. Lower extremities equally. Normal facial strength. PERRL, EOMs intact. No nystagmus or tilt skew. Normal gait, normal finger to finger, finger-nose, tandem gait, rapid alternating movements, Romberg. Psychiatric: Normal. Eyes Periorbital: periorbital findings normal Eyelids: eyelids normal Conjunctivae: conjunctivae normal Eyes/upper lids images:  1. Small corneal abrasion, approximately 2 mm diameter at the 4 o'clock position Course Vital Signs Vital signs: Vital Signs Temperature 37.2 C 12/12/24 08:11 Pulse 69 12/12/24 08:11 Respiratory Rate 20 12/12/24 08:11 Blood Pressure 128/78 12/12/24 08:11 Pulse Oximetry 98 12/12/24 08:11 Temperature 37.2 C 12/12/24 08:11 Temperature Source Oral 12/12/24 08:11 Pulse 69 12/12/24 08:11 Respiratory Rate 20 12/12/24 08:11 Blood Pressure 128/78 12/12/24 08:11 Blood Pressure Position Sitting 12/12/24 08:11 Pulse Oximetry 98 12/12/24 08:11 Oxygen Delivery Method Room Air 12/12/24 08:11 Oxygen Flow Rate 0 12/12/24 08:11 Pain Level 0 12/12/24 08:11 Medical Decision Making Initial Assessment: 54-year-old female with headache, dry mouth, dizziness, and nausea. History of diabetes and hypertension. Differential Diagnosis includes but is not limited to: Viral illness, cardiac arrhythmia, complications of diabetes such as DKA/HHS, electrolyte imbalance, hypoglycemia, dehydration, UTI, anxiety?panic attack ED Course: - EKG and chest x-ray obtained -Comprehensive blood workup performed. - Urine test conducted. - Assuring neurological exam. Symptoms greatly improved since arrival to ED, only mild fuzzy headedness noted, no feeling of presyncope. - Liter normal saline given for hydration; patient reports full solution of symptoms. I independently interpreted the following tests: EKG shows normal sinus rhythm, rate 63, slightly prolonged CO interval 212, no changes consistent with acute ischemia. CBC, CMP, VBG, hCG, A1c 6.3, and COVID/flu/RSV all reassuring.No acute abnormalities noted on chest x-ray, as was confirmed by radiologist Overall workup today very reassuring. No red flags concerning for serious etiology of lightheadedness, as this fully resolved with fluids, rest, and eating breakfast. Prescribed antibiotics for corneal abrasion and recommend close follow-up with PCP or eye doctor for further evaluation/management as needed. Clinical Impression: - Upper airway congestion - Lightheadedness, now resolved -corneal abrasion Will treat corneal abrasion with eyedrops, patient is a contact lens wearer. Recommend use of Flonase for upper airway congestion, likely postnasal drip. Recommend good hydration. Reviewed red flags indicate need for return to emergency care. Disposition: - Follow-Up: Monitor blood sugar levels. Patient consented to the use of [facility] Imaging Data Radiologic Study: Radiologist's impression: Exam(s) XR CHEST 2V PA LATERAL EXAM: XR CHEST 2V PA LATERAL CLINICAL HISTORY: dizziness TECHNIQUE: 2D digital imaging was performed of the chest. Two images were obtained. PA and lateral views were obtained. COMPARISON: CR XR PORTABLE CHEST AP from 12/21/2023 CR XR CHEST 2V PA LATERAL from 03/15/2024 FINDINGS: MEDIASTINUM: Normal. HEART: Normal. PULMONARY VASCULATURE: Normal. LUNGS: Clear. PLEURAL SPACE: No pleural effusion or pneumothorax. BONE:Within normal limits for the patient's age. OTHER FINDINGS:Normal. IMPRESSION: No acute pulmonary findings. PFSH All Active Problems (Updated 12/12/24 @ 10:25 by Bertha Pillai) Episodic lightheadedness (Acute) Head congestion (Acute) Corneal abrasion, right (Acute) Status post carpal tunnel release (Acute) Status post right ECTR 07/12/2024 status post left ECTR 07/19/2024 Perioral dermatitis (Acute) Neuropathy (Acute) Diabetes mellitus (Chronic) Menopausal and female climacteric states (Acute) Bladder pain syndrome (Acute) Elevated hematocrit (Acute) Diverticula of colon (Acute) Essential hypertension (Chronic 01/31/13) Hyperlipidemia (Chronic 06/29/12) ELEVATED TRIGLYCERIDES Primary insomnia (Chronic 11/27/14) Rosacea, acne (Chronic 04/30/15) Obesity (Chronic) Actinic keratosis (Acute) Lumbar radiculopathy (Acute) Medical History Bilateral carpal tunnel syndrome Fullness in left ear Ear pain Hyperparathyroidism Uterine fibroid ~3cm exophytic fibroid on the right side - unlikely to be causing her any issues. Presence of IUD Mirena IUD placed Nov 2018 Due to remove nov 2026 Polycystic ovaries Syncopal episodes Pannus, abdominal Shingles Poorly controlled diabetes mellitus (08/07/14) Pt. no longer has Surgical History History of colonoscopy (~11/2022) H/O section 09/09/98 Family History Mother , 76 Diabetes Essential hypertension Depression Heart disease Hyperlipidemia Father Diabetes Depression Heart disease triple bypass Skin cancer Dementia Hyperlipidemia Hypertension Maternal Grandfather No problems noted. Paternal Grandfather Heart disease Maternal Grandmother Essential hypertension Heart disease Hyperlipidemia Stroke Cancer Paternal Grandmother Colon cancer FAMILY HISTORY Polycystic kidney disease Social History Smoking/Tobacco Use Status: Former Tobacco Use tobacco type: cigarettes Quit Date: 10/15/22 Second Hand Exposure: Yes Smoking risk assessment performed?: Yes Alcohol Intake: current Alcohol Intake frequency: holidays/special occasions only Alcohol type: beer, wine and hard liquor Drug use: Daily Substance use type: former substance user and marijuana Details: THC drops and gummies Adopted: No Caregiver/Support person: No Foster care: No Household members: spouse, children and friend(s) Housing: house Number of Children: 3 Communication Needs: None Education Level: college Details: Bachelors of Social Work Do you need help understanding health information?: Never current occupation: TEACHER Pets and animals: Yes Pets and animals: dog(s) Sexually active: Yes Do you think of yourself as: straight/heterosexual Current gender identity: female What is your relationship status?: How often do you talk on the phone with friends or family?: three or more times per week How often do you get together with friends or relatives?: once per week How often do you attend uatsdin or church services?: 1-3 times per year Do you belong to any clubs or organized social groups?: no Panel score (0-1 are the most socially isolated patients): 2 Bonnie/Moravian: Adventist Special bonnie needs: No Agree to transfusion: Yes Seatbelt use: always Helmet use: Yes Helmet use: always Drive intox or ride w/intox local driver: No Working smoke detector in home: Yes Carbon monox detector in home: No Firearms in home: Yes Firearms unloaded and locked: Yes Victim of physical abuse: No Victim of emotional abuse: No Victim of sexual abuse: No Additional Social history: [employer] Female Reproductive History Menstrual control method: none and other ( vasectomy) History History 1 Para 1 Hx # Term Pregnancies Multiple births Hx # Pregnancies Ectopic pregnancies AB induced Hx Number of Living Children AB spontaneous
[2024-12-12 09:02] LABS: BE (Venous) 0 mmol/L (-2-3); HCO3 (Venous) 24 mmol/L (23-28); O2 Sat (Venous) 87 %; TCO2 (Venous) 22 mmol/L (24-29); pCO2 (Venous) 40 mmHg (41-51); pO2 (Venous) 49 mmHg
[2024-12-12 09:06] LABS: Abs Immature Grans 0.02 10^3/uL (0.0-0.06); HCT 42.3 % (36.0-46.0); HGB 13.9 g/dL (11.2-15.7); Immature Grans % 0.3 %; MCH 27.1 pg (27.0-33.0); MCHC 32.9 % (32.0-36.0); MCV 83 fL (80-95); MPV 10.8 fL (8.0-11.0); Platelet Count 284 10^3/uL (130-400); RBC 5.12 10^6/uL (3.93-5.22); RDW 14.5 % (11.7-14.6); RDW-SD 43.8 fL; WBC 7.46 10^3/uL (4.4-10.8)
[2024-12-12 09:14] LABS: Glucose Negative (Negative)
[2024-12-12] MEDS: Tetracaine 0.5% 4 ML BTL OP (09:22)
[2024-12-12] MEDS: Fluorescein STRIPS 100/BOX 1 MG OP (09:22)
[2024-12-12 09:25] LABS: Hemoglobin A1C 6.3 % (<5.7)
[2024-12-12 09:28] LABS: ALT 40 U/L (14-59); AST 20 U/L (15-37); Albumin 3.6 g/dL (3.4-5.0); Alkaline Phosphatase 60 U/L (46-116); Anion Gap 12.1 mmol/L (3-11); BUN 10 mg/dL (7-18); Bilirubin, Total 0.7 mg/dL (0.2-1.0); CO2 24.9 mmol/L (21.0-32.0); Calcium 9.4 mg/dL (8.5-10.1); Chloride 103 mmol/L (98-107); Estimated GFR 87.50 (mL/min/1.73m2); Glucose 116 mg/dL (74-106); Magnesium 1.8 mg/dL (1.8-2.4); Potassium 4.0 mmol/L (3.5-5.1); Sodium 140 mmol/L (136-145); Total Protein 6.7 g/dL (6.4-8.2)
[2024-12-12 09:33] LABS: COVID-19 PCR Negative (Negative); RSV PCR Negative (Negative)
[2024-12-12] MEDS: Normal Saline 1,000 ML 1000 ML IV (10:26)
== END 2024-12-12 11:21 | disposition home or self-care (01) ==
PROVIDERS: Emergency Provider Nurse Practitioner Family; PCP Family Medicine
DX: R42 Dizziness and giddiness (principal); R09.81 Nasal congestion; S05.01XA Injury of conjunctiva and corneal abrasion without foreign body, right eye, initial encounter; X58.XXXA Exposure to other specified factors, initial encounter
CPT/HCPCS: 99284; 99285; 81025; 36415; 36416; 82962; 80053; 82805; 87637; 93005; 96360; 71046; 81003; 83036; 83735; 85025; 93010